=== PATIENT | female | born 1950 | race Caucasian/White ===

== ENCOUNTER 2018-08-26 19:26 | Emergency (ER) | payer OTHER, SELFPAY ==
[2018-08-26 19:33] VITALS: BP 136/91; PULSE 71; RESP 16; TEMP 36.7; O2SAT 95; BMI 33.8
--- NOTE | 2018-08-26 20:21 | ED.BACK ---
HPI - Back Pain/Injury General Chief Complaint: Back Pain/Injury Stated Complaint: lower back pain Time Seen by Provider: 08/26/18 20:21 Source: patient and family Mode of arrival: ambulatory Limitations: no limitations History of Present Illness HPI Narrative: Patient is a 68-year-old female here for evaluation of right sided back pain. Patient states that it started to hurt 3 days ago. States that has worsened since then. Is now wrapping around to the front. She has been taking Flexeril at home that she had left over when she had neck pain but this has not helped her all that much. Denies any urinary symptoms. Denies any bowel symptoms. She has had her gallbladder removed. No skin changes. Also has been taking ibuprofen. States that the pain comes and goes. States she has had periods where she was symptom free over the past couple days. The pain is reproducible to palpation. Related Data Previous Rx's Medication Instructions Recorded diazepam [Valium] 5 mg PO BID-TID PRN #10 tab 08/26/18 Allergies Allergy/AdvReac Type Severity Reaction Status Date / Time EPINEPHRINE Allergy Unknown PT STATES Uncoded 06/28/17 12:56 HEART RATE INCREASES Review of Systems Constitutional Denies fever(s) Cardiovascular Denies chest pain and Denies dyspnea Respiratory Denies dyspnea Gastrointestinal Gastrointestinal: Reports abdominal pain Genitourinary Denies dysuria, Denies pelvic pain and Reports flank pain (Right) Musculoskeletal Reports back pain, Denies myalgias and Denies arthralgias Integumentary/Breasts Denies rash Neurologic Denies behavioral changes Psychiatric Denies behavioral changes Hematologic/Lymphatic Denies easy bleeding and Denies easy bruising FOR[facility]LY [facility] Surgical History History of cholecystectomy (Acute) Social History Smoking Status: Never smoker Social History Smoking Status: Never smoker Exam Initial Vital Signs Initial Vital Signs: Vital Signs Temperature 98.1 F 08/26/18 19:33 Pulse Rate 71 08/26/18 19:33 Respiratory Rate 16 08/26/18 19:33 Blood Pressure 136/91 H 08/26/18 19:33 Pulse Oximetry 95 08/26/18 19:33 Const General: cooperative, well developed, well groomed and No acute distress Orientation: alert and awake HENMT Head: normal to inspection and normocephalic Resp Effort & Inspection: normal respiratory effort Auscultation: clear to auscultation bilaterally Cardio Rate: regular rate Rhythm: regular rhythm Back/Spine/Pelvis Back: CVA tenderness right Thoracic/Lumbar Spine: other (Reproducible right-sided paraspinal tenderness from lower ribs to crest) Skin Lesions: no lesions Rashes: no rashes Neuro General: alert and awake Cognition: normal cognition Speech: speech normal Gait: normal gait Extrem General: normal to inspection and capillary refill normal Psych Appearance: grossly normal and well kempt Course Orders Ordered: ED Orders 08/26/18 20:15 Urine Microscopic Stat 08/26/18 21:12 Complete Blood Count AUTO DIFF Stat 08/26/18 21:19 Comprehensive Metabolic Panel Stat Lipase Stat Discontinued Medications Diazepam (Valium) 5 mg PO NOW ONE Stop: 08/26/18 20:32 Last Admin: 08/26/18 20:52 Dose: 5 mg Ketorolac Tromethamine (Toradol) 15 mg IV NOW ONE Stop: 08/26/18 20:32 Last Admin: 08/26/18 20:52 Dose: 15 mg Vital Signs - 8 hr 08/26/18 19:33 08/26/18 21:09 08/26/18 21:30 Temperature 98.1 F Pulse Rate 71 65 61 Respiratory Rate 16 16 16 Blood Pressure 136/91 H Blood Pressure [Left Arm] 150/77 H 136/69 Pulse Oximetry 95 97 97 MDM - Back Pain/Injury Lab Data Attestation: I reviewed the patient's lab results. Result diagrams: 08/26/18 21:12 08/26/18 21:19 Lab Results 08/26/18 08/26/18 08/26/18 Range/Units 20:15 21:12 21:19 WBC 9.5 (4.5-11.0) X10^3/uL RBC 4.80 (4.0-5.2) X10^6/uL Hgb 14.5 (12.0-16.0) g/dL Hct 43.0 (36-46) % MCV 89.5 (80-100) fL MCH 30.2 (26-34) PG MCHC 33.8 (30-36) % RDW 12.9 (11.6-14.8) % Plt Count 336 (150-400) X10^3/uL Neut % (Auto) 57.6 (50-75) % Lymph % (Auto) 27.9 (25-40) % [place] % (Auto) 10.3 (3-14) % Eos % (Auto) 3.0 (2-4) % Baso % (Auto) 1.2 (0-2) % Neut # (Auto) 5500 (6314-6740) /uL Lymph # (Auto) 2600 (1653-3143) /uL [place] # (Auto) 1000 H (0-900) /uL Eos # (Auto) 300 (0-450) /uL Baso # (Auto) 100 (0-100) /uL Sodium 136 L (137-145) mmol/L Potassium 3.9 (3.4-5.1) mmol/L Chloride 102 (98-107) mmol/L Carbon Dioxide 26 (22-32) mmol/L BUN 19 H (7-17) mg/dL Creatinine 0.70 (0.52-1.04) mg/dL Estimated GFR > 60.0 (>60) mL/min BUN/Creatinine Ratio 27.1 H (6-22) Glucose 107 (80-110) mg/dL Calcium 9.5 (8.4-10.2) mg/dL Total Bilirubin 0.3 (0.2-1.3) mg/dL AST 20 (14-36) IU/L ALT 16 (9-52) IU/L Alkaline Phosphatase 85 (38-126) U/L Total Protein 7.3 (6.3-8.2) g/dL Albumin 4.0 (3.5-5.0) g/dL Globulin 3.3 (1.7-4.1) g/dL Albumin/Globulin Ratio 1.2 (1.0-2.8) Lipase 50 (23-300) U/L Urine RBC None seen (0-5/HPF) Urine WBC 1-5/hpf (0-5/HPF) Ur Squamous Epith Cells 5-10 /hpf H (0-5/HPF) Urine Bacteria Moderate (10-30) H (None) Ur Culture Indicated? Cult not indicated Urine Dip Bedside Urine Glucose Negative Bedside Urine Bilirubin - Negative Bedside Urine Ketone - Negative Urine Specific [place] 1.025 Bedside Urine Occult Blood - Negative Bedside Urine pH 5.5 Bedside Urine Protein - Negative Bedside Urine Urobilinogen - Negative Bedside Urine Nitrite - Negative Bedside Urine Leukocytes +/- 15 Esterase MDM Narrative Medical decision making narrative: Patient's urine shows no signs of blood. Has reproducible right-sided back pain so I feel that renal colic is unlikely. Patient's urinalysis is also negative for infection. Low suspicion for pyelonephritis. She has had her gallbladder removed. Low suspicion for biliary colic. Her her symptoms do seem to be colicky. The patient states that she is having a muscle spasm. She was given Toradol and Valium here in the emergency department which did improve her symptoms however did not resolve them. No trauma. Will hold on x-rays. Will send home with a prescription for Valium. She was instructed to continue to take the anti-inflammatories. Informed her not to take the Flexeril and the Valium together. We did discuss the importance of avoiding falling. Patient was given return precautions and follow-up instructions. She expressed understanding and agreement with plan. Discharge Plan Departure Patient Disposition: Home Clinical Impression: Muscle spasm of back Discharge Date/Time: 08/26/18 21:55 Interventions: ED Discharge Assessment Last Done: 08/26/18 21:57 Instructions: DI for Back Spasm Activity Restrictions/Additional Instructions: The Flexeril and the Valium can make you drowsy. Do not take these medications together. Be careful at home to avoid falling. You can also use heat and ice and massage. You can also do some light stretching. Return to the emergency department for any new or worsening symptoms. Contact your primary care doctor for a follow-up. Prescriptions: New diazepam [Valium] 5 mg tablet 5 mg PO BID-TID PRN (Reason: muscle spasm) Qty: 10 RF: 0 Referrals: Jose Eastman MD [Primary Care Provider] -
[2018-08-26 20:32] LABS: RBC Urine None Seen (0-5/HPF)
[2018-08-26 20:37] LABS: WBC Urine 1-5/HPF (0-5/HPF)
[2018-08-26 20:38] LABS: Bacteria Urine Moderate (10-30); Culture Indicated Urine Cult Not Indicated; Squamous Epithelial Cell Urine 5-10 /HPF (0-5/HPF)
[2018-08-26] MEDS: KETOROLAC 60 MG/2 ML VIAL 15 MG IV (20:52)
[2018-08-26] MEDS: diazePAM 5 MG TABLET PO (20:52)
[2018-08-26 21:09] VITALS: BP 150/77; PULSE 65; RESP 16; O2SAT 97
[2018-08-26 21:19] LABS: Add Manual Diff / Slide Review NO; Basophils Absolute Auto 100 /uL (0-100); Basophils Percent Auto 1.2 % (0-2); Eosinophils Absolute Auto 300 /uL (0-450); Hemoglobin 14.5 g/dL (12.0-16.0); Lymphocytes Absolute Auto 2600 /uL (1100-4500); Lymphocytes Percent Auto 27.9 % (25-40); Mean Corpuscular HGB Conc 33.8 % (30-36); Mean Corpuscular Hemoglobin 30.2 PG (26-34); Mean Corpuscular Volume 89.5 fL (80-100); Monocytes Absolute Auto 1000 /uL (0-900); Monocytes Percent Auto 10.3 % (3-14); Neutrophils Absolute Auto 5500 /uL (1500-7000); Neutrophils Percent Auto 57.6 % (50-75); Platelet Count 336 X10^3/uL (150-400); Red Cell Distribution Width 12.9 % (11.6-14.8); White Blood Cell Count 9.5 X10^3/uL (4.5-11.0)
[2018-08-26 21:30] VITALS: BP 136/69; PULSE 61; RESP 16; O2SAT 97
[2018-08-26 21:41] LABS: Alanine Aminotransferase 16 IU/L (9-52); Albumin Globulin Ratio 1.2 (1.0-2.8); Alkaline Phosphatase 85 U/L (38-126); Aspartate Aminotransferase 20 IU/L (14-36); BUN Creatinine Ratio 27.1 (6-22); Bilirubin Total 0.3 mg/dL (0.2-1.3); Blood Urea Nitrogen 19 mg/dL (7-17); Calcium 9.5 mg/dL (8.4-10.2); Carbon Dioxide 26 mmol/L (22-32); Chloride 102 mmol/L (98-107); Estimated Glomerular Filt Rate > 60.0 mL/min (>60); Globulin 3.3 g/dL (1.7-4.1); Glucose 107 mg/dL (80-110); HEMOLYSIS < 15 (0-50); Lipase 50 U/L (23-300); Potassium 3.9 mmol/L (3.4-5.1); Sodium 136 mmol/L (137-145); Total Protein 7.3 g/dL (6.3-8.2)
== END 2018-08-26 21:55 | disposition home or self-care (01) ==
PROVIDERS: Emergency Provider Emergency Medicine; Family Provider Family Medicine; PCP Family Medicine
DX: M62.830 Muscle spasm of back (principal)
CPT/HCPCS: 36415; 36591; 80053; 81003; 81015; 83690; 85025; 96374; 99282; 99284; J1885

== ENCOUNTER 2019-07-23 17:27 | Observation (INO) | payer OTHER, SELFPAY ==
[2019-07-23 17:30] VITALS: BP 139/67; PULSE 66; RESP 20; TEMP 36.7; O2SAT 96; BMI 32.9
--- NOTE | 2019-07-23 18:00 | DI.RAD.S_ITS ---
PROCEDURE: XR CHEST 1V INDICATIONS: Chest pain TECHNIQUE: One view of the chest was acquired. COMPARISON: [facility], , CHEST 1 VIEW, 04/22/2014, 21:30. FINDINGS: Surgical changes and devices: None. Lungs and pleura: Lungs are clear. No pleural effusions or pneumothorax. Mediastinum: Mediastinal contours appear normal. Heart size is normal. Bones and chest wall: No suspicious bony lesions. Overlying soft tissues appear unremarkable. IMPRESSION: No acute cardiopulmonary disease. Dictated by: Blake Benitez M.D. on 07/23/2019 at 18:24 Approved by: Blake Benitez M.D. on 07/23/2019 at 18:25
--- NOTE | 2019-07-23 18:01 | ED_ITS ---
HPI - Chest Pain General Chief Complaint: Chest Pain Stated Complaint: L side chest pain/SOB Time Seen by Provider: 07/23/19 17:29 Source: patient Mode of arrival: EMS Limitations: no limitations History of Present Illness HPI narrative: Patient brought in by ambulance for left-sided chest pain 1 hour prior to arrival. She originally was in a car out for a ride. Had left-sided chest pain nonradiating. Had nausea dyspnea. Feels slightly tingly in both arms and face. No back pain abdominal pain no syncope. Patient got home and had EMS called. She did take a full aspirin prior to arrival. Currently no [address] pain. Pain was 10/10. Sharp./stress test 20 years ago. Patient does not smoke. Related Data Previous Rx's Medication Instructions Recorded diazepam [Valium] 5 mg PO BID-TID PRN #10 tab 08/26/18 Allergies Allergy/AdvReac Type Severity Reaction Status Date / Time doxycycline [From Vibramycin] Allergy Verified 07/23/19 17:34 EPINEPHRINE AdvReac Unknown PT STATES Uncoded 07/23/19 17:34 HEART RATE INCREASES Review of Systems Review of Systems Narrative: GENERAL: Denies chills, fatigue, malaise, fever, sweats. HEENT: Denies sinus pain, ear pain, sore throat, difficulty swallowing, dizziness. RESPIRATORY: Denies cough, wheezing, hemoptysis, sputum. Has dyspnea CARDIOVASCULAR: Denies palpitations/edema/syncope, has chest pain GASTROINTESTINAL: Denies vomiting, abdominal pain, diarrhea, constipation, melena. Has nausea : Denies dysuria, frequency, incontinence, hematuria, urinary retention. MUSCULOSKELETAL: denies weakness, joint pain, or bony pain SKIN: Denies rash, skin lesions, or other NEUROLOGIC: Denies weakness, headache, numbness, change in speech, confusion, s eizures, incoordination. PSYCHIATRIC: No concerning psychosocial issues. ROS Unobtainable: All systems reviewed & are unremarkable except as noted in HPI and below Patient History Surgical History History of cholecystectomy (Acute) Social History Smoking Status: Never smoker Smoking Status: Never smoker alcohol intake frequency: holidays/special occasions only Substance Use Type: does not use Exam Narrative Exam Narrative: GENERAL: patient appears stated age. Well-nourished, well- developed patient, in no distress, not toxic HEAD: Atraumatic. Normocephalic. EYES: Pupils equal round and reactive. . ENT: Nose without bleeding, purulent drainage. NECK: Trachea midline. Non tender CARDIOVASCULAR: Regular rate and rhythm without murmurs, gallops, or rubs. RESPIRATORY: Clear to auscultation. Breath sounds equal bilaterally. No wheezes, rales, or rhonchi. GASTROINTESTINAL: Abdomen soft, non-tender, nondistended. EXTREMITIES: No edema or joint tenderness. BACK: Nontender without deformity or crepitance. No flank tenderness. NEURO: AOx3. SKIN: No rash or erythema of visible areas Initial Vital Signs Initial Vital Signs: Vital Signs Temperature 98.0 F 07/23/19 17:30 Pulse Rate 66 07/23/19 17:30 Respiratory Rate 20 07/23/19 17:30 Blood Pressure 139/67 07/23/19 17:30 Pulse Oximetry 96 07/23/19 17:30 Course Course Course Narrative: time 1811 s/o dr wang...results pending...admit obv of stress test Orders Ordered: ED Orders 07/23/19 17:43 Complete Blood Count AUTO DIFF Stat Comprehensive Metabolic Panel Stat Lipase Stat Partial Thromboplastin Time Stat Prothrombin Time INR Stat Troponin & CK Cardiac Panel Stat 07/23/19 18:00 XR chest 1V Stat EKG-12 Lead Stat Vital Signs Vital signs: Vital Signs - 8 hr 07/23/19 17:30 Temperature 98.0 F Pulse Rate 66 Respiratory Rate 20 Blood Pressure 139/67 Pulse Oximetry 96 MDM - Chest Pain Differential Diagnosis Differential diagnosis: Likely unstable angina pectoris and atypical chest pain Lab Data Result diagrams: 07/23/19 17:43 07/23/19 17:43 ECG Data Attestation: I personally reviewed and interpreted this ECG as follows: Interpretation: Time 5:37 p.m.. Sinus bradycardia, rate 58 Discharge Plan Departure Prescriptions: No Action diazepam [Valium] 5 mg tablet 5 mg PO BID-TID PRN (Reason: muscle spasm) Qty: 10 RF: 0
[2019-07-23 18:06] LABS: Add Manual Diff / Slide Review NO; Basophils Absolute Auto 100 /uL (0-100); Basophils Percent Auto 0.8 % (0-2); Eosinophils Absolute Auto 200 /uL (0-450); Eosinophils Percent Auto 2.5 % (2-4); Hematocrit 42.9 % (36-46); Hemoglobin 14.4 g/dL (12.0-16.0); Lymphocytes Absolute Auto 2200 /uL (1100-4500); Lymphocytes Percent Auto 31.7 % (25-40); Mean Corpuscular HGB Conc 33.6 % (30-36); Mean Corpuscular Hemoglobin 30.6 PG (26-34); Monocytes Absolute Auto 600 /uL (0-900); Monocytes Percent Auto 8.9 % (3-14); Neutrophils Absolute Auto 3900 /uL (1500-7000); Neutrophils Percent Auto 56.1 % (50-75); Platelet Count 308 X10^3/uL (150-400); Red Blood Cell Count 4.71 X10^6/uL (4.0-5.2); Red Cell Distribution Width 12.8 % (11.6-14.8); White Blood Cell Count 6.9 X10^3/uL (4.5-11.0)
[2019-07-23 18:07] LABS: Prothrombin Time 11.3 SECONDS (10.1-12.7)
[2019-07-23 18:10] LABS: PTT Partial Thromboplastin Tim 36 SECONDS (26.4-36.2)
[2019-07-23 18:13] LABS: Alanine Aminotransferase 15 IU/L (<35); Albumin 4.2 g/dL (3.5-5.0); Albumin Globulin Ratio 1.2 (1.0-2.8); Alkaline Phosphatase 66 U/L (38-126); Aspartate Aminotransferase 24 IU/L (14-36); BUN Creatinine Ratio 31.4 (6-22); Bilirubin Total 0.4 mg/dL (0.2-1.3); Blood Urea Nitrogen 22 mg/dL (7-17); Calcium 9.6 mg/dL (8.4-10.2); Carbon Dioxide 27 mmol/L (22-32); Chloride 100 mmol/L (98-107); Creatine Kinase 46 U/L (30-135); Estimated Glomerular Filt Rate > 60.0 mL/min (>60); Globulin 3.5 g/dL (1.7-4.1); Glucose 107 mg/dL (80-110); HEMOLYSIS 24 (0-50); Lipase 39 U/L (23-300); Potassium 3.9 mmol/L (3.4-5.1); Sodium 135 mmol/L (137-145); Total Protein 7.7 g/dL (6.3-8.2)
[2019-07-23 18:25] LABS: Troponin I < 0.012 ng/mL (0.01-0.034)
[2019-07-23 19:30] VITALS: BP 144/74; PULSE 57; RESP 30; TEMP 36.6; O2SAT 97
[2019-07-23 19:45] VITALS: BMI 32.9
--- NOTE | 2019-07-23 22:48 | PC.NURSE ---
Admit/Evening SHift Note- Patient arrived to room via stretcher at 1930. Patient alert and oriented and able to arturo needs known to staff. Admission questions done, meds reviewed, and physical assessment completed. Oriented patient to bed and bed controls, room, bathroom, lights, phone, menu, and call morley/tv remote. Safety measures in place. Patient agrees to call for assistance. Call morley and phone within reach. Will continue to monitor.
--- NOTE | 2019-07-24 | DI.NM.S_ITS ---
PROCEDURE: KS MAGDALENO PERF SPECT R&S Treadmill exercise Rest and pharmacological stress myocardial perfusion SPECT with gated imaging and ejection fraction RADIOPHARMACEUTICAL: 12.1 mCi Tc-99m tetrafosmin IV at rest and 26.1 mCi Tc-99m tetrafosmin IV at peak effect of pharmacological stress. [id number] was performed. INDICATIONS: chest pain TECHNIQUE: Radiopharmaceutical was injected at peak stress test, and also at rest. SPECT images were obtained. SPECT myocardial perfusion images were displayed in short axis, horizontal long axis, and vertical long axis views. Gated images were reviewed using SynapSense software. COMPARISON: None. CARDIAC STRESS: The modified isamar protocol was used and the patient achieved 81% of max predicted heart rate. 7.0 METs. Resting BP 126/78mmHg. Max BP 160/90mmHg. Symptoms: The patient denied anginal chest pain. Left arm parasthesia with hyperventilation. Aminophylline: none EKG: No diagnostic changes of ischemia; occasional PVCs. FINDINGS: Raw data: There is good myocardial uptake of radiotracer. No significant motion artifacts. Qnxo-zw-cznlf ratio is 0.37 (normal is less than 0.38 for tetrafosmin tracer). Left ventricle function: Gated images demonstrate normal left ventricular wall thickening. No segmental wall motion abnormalities. No transient ischemic dilation; TID is 0.62 (normal less than 1.3). Left ventricle resting end diastolic volume is 78 mL. Left ventricle stress ejection fraction is 86%; normal range is above 45%. Myocardial perfusion: There is normal distribution of activity in the right and left ventricular myocardium. No fixed or reversible perfusion defects. IMPRESSION: Low risk, normal slightly submaximal treadmill nuclear stress test 1) No perfusion evidence of ischemia or infarction. 2) Normal left ventricular size, wall motion, and systolic function (EF post stresws 86%). 3) No ECG evidence of ischemia. 4) No angina during the study. Left arm parasthesia with hyperventilation. 5) Reduced exercise capacity (7.0 METs). Slightly submaximal stress test as 81% of max predicted heart rate achieved (submaximal study reduces sensitivity to detect obstructive CAD). Appropriate BP response to exercise. 6) No prior nuclear stress test available for comparison. Dictated by: Dinesh Henning MD on 07/24/2019 at 17:09 Approved by: Dinesh Henning MD on 07/24/2019 at 17:17
--- NOTE | 2019-07-24 | DI.ECHO.S_ITS ---
[facility]---------+ [facility] +---------+ : : [address] [address] : : : : [id number] : : : : Phone: [phone] Echocardiogram Report + + :Name: EDY HARDING Study Date: 07/24/2019 Height: 62 in : :Hospital Weight: 180 lb : : Gender: Female BSA: 1.8 m2 : :: 1950 Age: 68 yrs BP: 144/74 mmHg: :Reason For Study: CHEST PAIN : :Ordering Physician: Fany : :Hospitalist Performed By: Suzanne Trujillo : :Referring: BRITNEY GASTON : + + Interpretation Summary Left ventricular systolic function is normal without any focal wall motion abnormalities with the ejection fraction estimated at 65-70%. The right ventricle appears normal. Pulmonary artery pressures cannot be estimated but CVP is estimated at 3 mmHg. There is mild left atrial enlargement. There are no significant valvular abnormalities. The aortic arch is at the upper limits of normal in size. Procedure: A two-dimensional transthoracic echocardiogram with color flow and Doppler was performed. The study quality was technically difficult. There is no prior echocardiogram noted for this patient. The patient was in normal sinus rhythm during the exam. The heart rate ranged between 63-70 bpm during the study. Left Ventricle: The left ventricle is normal in size, wall thickness, and systolic function without any focal wall motion abnormalities. The ejection fraction is estimated to be 65-70%. Diastolic function could not be accurately assessed due to contradictory data. Right Ventricle: The right ventricle is normal in size and function. Atria: The left atrium is mildly dilated. The right atrium is normal in size. There is no Doppler evidence for an interatrial shunt. Mitral Valve: The mitral valve is normal in structure and function. There is trace mitral regurgitation. Aortic Valve: The aortic valve is trileaflet. The aortic valve opens well. There is no aortic valve stenosis. No aortic regurgitation is present. Tricuspid Valve: The tricuspid valve is normal in structure and function. No tricuspid regurgitation. Pulmonary artery pressures cannot be estimated because of the lack of a measurable TR jet velocity but the IVC suggests a CVP of around 3 mmHg. Pulmonic Valve: The pulmonic valve is normal in structure and function. There is no pulmonic valvular regurgitation. There is no significant valvular heart disease. Great Vessels: The aortic root is normal size. The dimensions of the ascending aorta are normal. The aortic arch is at the upper limits of normal in size. The IVC is of normal diameter and collapses greater than 50% with a sniff. This suggests a low right atrial pressure of 3 mm Hg. Pericardium/ Pleura There is no pericardial effusion. MMode/2D Measurements & Calculations LVIDd: 4.3 cm LVOT diam: 1.9 cm LVIDs: 2.7 cm Ao root diam: 2.5 cm FS: 37.6 % asc Aorta Diam: 3.2 cm EPSS: 0.57 cm Ao Arch Diam (Prox Trans): 3.1 cm IVSd: 0.84 cm LVPWd: 0.90 cm LV adams. diameter/BSA (cm/m^2): 2.3 LV sys. diameter/BSA (cm/m^2): 1.5 LA A2 area: 21.1 cm2 RA long axis: 5.1 cm LA A4 area: 20.5 cm2 RA area: 15.7 cm2 LA length (vol): 5.4 cm RA vol: 41.7 ml LA vol: 68.5 ml RA : 22.8 ml/m2 LA vol index: 37.5 ml/m2 IVC diam: 0.82 cm RVD1 (basal): 3.5 cm TAPSE: 2.4 cm Doppler Measurements & Calculations Ao V2 max: 114.2 cm/sec LVOT Max Celio: 111.4 cm/sec Ao V2 mean: 79.1 cm/sec LV V1 max P.0 mmHg Ao max P.2 mmHg LV V1 VTI: 25.4 cm Ao mean P.8 mmHg HIMANSHU(I,D): 2.8 cm2 Ao V2 VTI: 26.8 cm HIMANSHU(V,D): 2.9 cm2 sev ratio: 0.95 HIMANSHU indexed to BSA (cm^2/m^2): 1.5 MV E max celio: 70.5 cm/sec PA V2 max: 76.2 cm/sec MV A max celio: 77.3 cm/sec PA V2 mean: 56.0 cm/sec MV E/A: 0.91 PA mean P.4 mmHg Med Peak E' Celio: 6.8 cm/sec E/E' med: 10.4 Lat Peak E' Celio: 6.5 cm/sec E/E' lat: 10.8 E/e' average: 10.6 MV dec time: 0.25 sec SV(LVOT): 75.3 ml Reading Physician:АННА
[2019-07-24 00:11] VITALS: BP 122/60; PULSE 63; RESP 18; TEMP 36.8; O2SAT 95
--- NOTE | 2019-07-24 00:15 | PC.NURSE ---
Patient is alert and oriented. Breath sounds CTA with RA sat of 95%. HRR; is on telemetry with last recorded reading of SR. Denies chest pain. Denies nausea. BT hypoactive but is passing flatus. Reports chronic sx of IBS. Denies dysuria, frequency or urgency; urine is clear yellow. Able to turn self in bed. Reports earlier unsteadiness when up so requested she call for assistance when needing to get out of bed for safety; verbalizes understanding. Fall risk score is low but bed alarm activated for night time safety.
--- NOTE | 2019-07-24 01:54 | PM.HP.1 ---
History of Present Illness History of Present Illness Date Patient Seen: 07/23/19 Time Patient Seen: 20:00 Chief complaint: L side chest pain/SOB Narrative: Nimo Cody is a 68-year-old female with a history of hypertension an currently taking hormone replacement was driving today when she developed shooting pain that radiated to her tongue and left hand. She did not think anything of it went home and noticed that her face was quite red. She felt like her forehead was cold and that her left hand was also getting cold. She felt weak in her legs. And had a mild case of nausea. She contacted EMS and was found to have very high blood pressure of 200/113 and was given at full strength aspirin to chew. She states she took her blood pressure meds today. She denies headache, vision changes, shortness of breath, abdominal pain, dysuria, diarrhea or constipation. Patient History Medical History Hypertension (Acute) Surgical History History of cholecystectomy (Acute) History of right hip replacement (Acute) Hx of hysterectomy (Acute) Hx of rhinoplasty (Acute) Family & Social History Family History Mother Hypertension COPD (chronic obstructive pulmonary disease) Father Heart disease Social History: household members family Prior Living Arrangements House Safety & Behavioral: Feels Safe in Current Yes Environment Been Physically Hurt or No Threatened By a Person Suicidal Ideation Description None Suicide Plan Description No Plan Tobacco & Substance use: Smoking Status Former smoker alcohol intake frequency holiday/special occasion Substance Use Type does not use Meds Home Medications and Allergies Home Medications Medication Instructions Recorded Confirmed Type amlodipine 2.5 mg PO DAILY 07/24/19 07/24/19 History carvedilol 12.5 mg PO BID 07/24/19 07/24/19 History estradiol 1 mg PO BEDTIME 07/24/19 07/24/19 History hydrochlorothiazide 12.5 mg PO DAILY 07/24/19 07/24/19 History levothyroxine 25 mcg PO DAILY 07/24/19 07/24/19 History melatonin 3 mg PO BEDTIME 07/24/19 07/24/19 History nortriptyline 25 mg PO BEDTIME 07/24/19 07/24/19 History valacyclovir 500 mg PO PRN PRN 07/24/19 07/24/19 History Allergies Allergy/AdvReac Type Severity Reaction Status Date / Time doxycycline [From Vibramycin] Allergy Verified 07/23/19 19:08 EPINEPHRINE AdvReac Unknown PT STATES Uncoded 07/23/19 17:34 HEART RATE INCREASES Review of Systems Review of Systems ROS: Yes All systems reviewed with the patient and are negative except as otherwise documented Exam Vital Signs (past 8 hours): - 07/23/19 19:30 07/24/19 00:11 Temperature 97.8 F 98.2 F Pulse Rate 57 L 63 Respiratory Rate 30 H 18 Blood Pressure 144/74 H 122/60 Pulse Oximetry 97 95 Oxygen Delivery Method Room Air Oxygen Flow Rate 0 Narrative Exam Narrative: Gen: Alert, oriented, well-nourished 68 y.o. female, vss HEENT: normocephalic, atraumatic, conjunctiva clear, sclera non-icteric, oral mucosa pink and moist Neck: supple, full ROM, no JVD Resp: Lungs CTA, non-labored breathing CV: RRR, no murmur or rubs Abd: soft, non-tender, normoactive BTs Skin: no lesions or rashes, dry and intact Neuro: Alert and oriented X 4 w/no focal deficits Extremities: moves all 4 extremities, is ambulatory, negative Kristine?s sign Psyche: normal mood and affect. Objective Labs Result Diagrams: 07/23/19 17:43 07/23/19 17:43 Labs: Laboratory Results - last 24 hr 07/23/19 07/23/19 07/23/19 17:43 17:43 17:43 WBC 6.9 RBC 4.71 Hgb 14.4 Hct 42.9 MCV 91.0 MCH 30.6 MCHC 33.6 RDW 12.8 Plt Count 308 Neut % (Auto) 56.1 Lymph % (Auto) 31.7 [place] % (Auto) 8.9 Eos % (Auto) 2.5 Baso % (Auto) 0.8 Neut # (Auto) 3900 Lymph # (Auto) 2200 [place] # (Auto) 600 Eos # (Auto) 200 Baso # (Auto) 100 PT 11.3 INR 1.0 APTT 36 Sodium 135 L Potassium 3.9 Chloride 100 Carbon Dioxide 27 BUN 22 H Creatinine 0.70 Estimated GFR > 60.0 BUN/Creatinine Ratio 31.4 H Glucose 107 Calcium 9.6 Total Bilirubin 0.4 AST 24 ALT 15 Alkaline Phosphatase 66 Total Creatine Kinase 46 CK-MB (CK-2) TNP CK-MB (CK-2) Rel Index TNP Troponin I < 0.012 Total Protein 7.7 Albumin 4.2 Globulin 3.5 Albumin/Globulin Ratio 1.2 Lipase 39 Assessment & Plan Assessment & Plan narrative: Nimo Cody will be placed into observation and undergo a nuclear stress test in the morning. Chest pain -1st troponin was negative she will have 2 more troponins q.6 -carvedilol is being held tonight and will be resumed after she undergoes her stress test. -nuclear stress test in the morning -Echocardiogram in the am Essential hypertension -patient is resumed on amlodipine 2.5 mg -hydrochlorothiazide is being held Hormone replacement therapy -patient takes estrogen 1 mg, this is held due to increased cardiac rest Consults: none Patient is placed into an observation bed. Stay is is not likely to exceed 2 midnights. FEN: saline lock, 2 gram sodium diet,BMP in the am. VTE prophylaxis: Heparin 5000 units subcu twice daily Dispo: Probable discharge to home with outpatient follow-up Code Status: Full code as discussed with patient COVID-19 COVID-19 status: Not tested Quality VTE Deep Vein Thrombosis/Pulmonary Embolism Present on Admission: No
[2019-07-24 02:18] LABS: Troponin I < 0.012 ng/mL (0.01-0.034)
[2019-07-24] MEDS: HEPARIN 5,000 UNIT/ML VIAL 5000 UNIT SUBCUT ×2 (02:39→09:17)
[2019-07-24] MEDS: AMLODIPINE 2.5 MG TABLET PO (02:39)
[2019-07-24 04:48] VITALS: BP 132/69; PULSE 64; RESP 18; TEMP 36.6; O2SAT 95
[2019-07-24 05:56] LABS: Alanine Aminotransferase 13 IU/L (<35); Albumin 3.8 g/dL (3.5-5.0); Albumin Globulin Ratio 1.1 (1.0-2.8); Alkaline Phosphatase 66 U/L (38-126); Aspartate Aminotransferase 20 IU/L (14-36); BUN Creatinine Ratio 31.7 (6-22); Bilirubin Total 0.4 mg/dL (0.2-1.3); Blood Urea Nitrogen 20 mg/dL (7-17); Calcium 9.4 mg/dL (8.4-10.2); Carbon Dioxide 27 mmol/L (22-32); Chloride 100 mmol/L (98-107); Estimated Glomerular Filt Rate > 60.0 mL/min (>60); Globulin 3.4 g/dL (1.7-4.1); Glucose 104 mg/dL (80-110); HEMOLYSIS < 15 (0-50); Potassium 3.4 mmol/L (3.4-5.1); Sodium 134 mmol/L (137-145); Total Protein 7.2 g/dL (6.3-8.2)
[2019-07-24 08:00] VITALS: BP 135/74; PULSE 61; RESP 18; TEMP 36.1; O2SAT 97
[2019-07-24 08:20] LABS: Troponin I < 0.012 ng/mL (0.01-0.034)
[2019-07-24] MEDS: SODIUM CHLORIDE 0.9% FLUSH 10 ML IV (09:17)
[2019-07-24] MEDS: ASPIRIN EC 81 MG TABLET PO (09:17)
[2019-07-24 10:17] LABS: Troponin I < 0.012 ng/mL (0.01-0.034)
[2019-07-24] MEDS: LEVOTHYROXINE 25 MCG TABLET PO (11:43)
[2019-07-24 12:00] VITALS: BP 143/76; PULSE 63; RESP 18; TEMP 36.7; O2SAT 95
--- NOTE | 2019-07-24 13:55 | CM.DANOTE ---
Patient is a 68 year old female who was admitted on 07/23/19 for Chest Pain/SOB. Pt has [facility] for insurance and her PCP is Dr. Jose Eastman. EMR was reviewed. Per MD, pt to have Stress test and Echo today and home pending test results. Per RN, pt to have second half of stress test today around 1410 and Echo still pending. SW met bedside with pt and explained role and pt confirms that she lives at home in [place] and is primary CG to her elderly 94 yo mother. Pt's brother lives in [place] and is staying with elderly mother while pt is admitted to the hospital. Pt's Dtr/DPOA Mary Long also lives in [place] and supportive and available to provide transport home at d/c. Pt is independent with ADL's at baseline and denies any hx of HH or SNF and preference is to d/c home later today pending test results. Pt does not anticipate any d/c needs at this time. Plan: SW to follow for likely pt d/c home via Dtr POV later today pending Echo and Stress test results. SW to follow for any further identified needs. FRANKY Hong Discharge Planning/Care Management CM Discharge Assessment Start: 07/24/19 13:53 Freq: Status: Active Protocol: Document 07/24/19 13:53 BF (Rec: 07/24/19 13:54 BF [id number]) Discharge Planning Assessment Assigned [place] Attorney FRANKY Aquino DPOA/Assigned Designee Name Aureliano Long Contact Information [phone] Advance Directives? No Advance Directives on File No History Provided By Patient,Medical Record Has Patient been admitted in last 30 No days? Prior Living Arrangements House Household Members family Type of transporation used prior to Drives own vehicle admit Comment Lives at home in [place] with local supportive family and is primary CG to her elderly mother who lives with pt Independent with ADL's Yes Is patient alert and oriented? Yes Caregiver for Another Yes: elderly mother Comment Likely home pending Echo and Stress test Barriers to Discharge No Discharge Plan Home Transportation Arrangement Dtr can provide transport home at d/c Referrals Initiated None needed Whiteboard Updated in Patient Room with Yes name and ext. # of [place] Attorney Review Status In Process Please Provide Date Initial DC 07/24/19 Assessment Was Performed Next Review Type Continued Stay Review
--- NOTE | 2019-07-24 14:16 | PC.NURSE ---
Patient resting in bed, denies pain or complaint. Picked up at this time for stress test via wheelchair.
--- NOTE | 2019-07-24 14:58 | PM.TREADMILL ---
Cardiac Stress Test Report Referral & Results Date Patient Seen: 07/24/19 Time Patient Seen: 14:30 Requesting provider: Justine Roca Indication: Chest pain Rest ECG: Normal sinus rhythm Procedure Note: Today following both written and verbal informed consent the patient was exercised according to a modified Sergio protocol (held at stage II) patient went for a total of 7 minutes 14 seconds achieving a maximum heart rate of 123 maximum systolic blood pressure of 160. This is approximately 7.0 METs. Exercise was terminated at this point because of fatigue. Patient was also given Cardiolite through a previously started Hep-Lock IV by the senior nuclear medicine technologist approximately 1 minute prior to the cessation of exercise. Normal hemodynamic response to exercise. Patient had carvedilol on board. Functional activity impairment cannot be determined on a modified Sergio protocol. No signs or symptoms of angina with the exception of a left arm paresthesia most likely to be due to hyperventilation. Occasional PVCs seen on EKG during peak exercise. No ST deviations seen on tracing. Impression: Successful Cardiolite treadmill. Will await perfusion imaging. Please note: Actual ECG tracings can be found in the PACS system.
[2019-07-24 16:02] VITALS: BP 136/71; PULSE 68; RESP 18; TEMP 36.2; O2SAT 94
--- NOTE | 2019-07-24 18:13 | PC.NURSE ---
Assumed care of pt at 1500. Pt off unit for Stress test. Returned to room at approx 1545. Denies chest pain, pressure or sob. Echo completed. Discharge to home from MD. Pt verbalized understanding of d/c instructions. Pt states she will call PCP in AM to schedule f/up appt. IV removed, Tele removed, pt dressed and trans to w/c. Escorted out by FUEL SYSTEM MAINTENANCE SUPERVISOR to private vehicle. Pt left in stable condition with all personal belongings.
--- NOTE | 2019-09-03 14:29 | PM.DS.1 ---
History of Present Illness History of Present Illness Date Patient Seen: 07/24/19 Chief complaint: L side chest pain/SOB Narrative: Nimo Cody is a 68-year-old female with a history of hypertension an currently taking hormone replacement was driving today when she developed shooting pain that radiated to her tongue and left hand. She did not think anything of it went home and noticed that her face was quite red. She felt like her forehead was cold and that her left hand was also getting cold. She felt weak in her legs. And had a mild case of nausea. She contacted EMS and was found to have very high blood pressure of 200/113 and was given at full strength aspirin to chew. She states she took her blood pressure meds today. She denies headache, vision changes, shortness of breath, abdominal pain, dysuria, diarrhea or constipation. Discharge Providers Provider Date of admission: 07/23/19 18:30 Discharge Date: 07/24/19 Primary care physician: Tony Eastman MD Discharge provider: Christy Fisher MD Summary Hospital Course Discharge Diagnosis: 1. Chest pain etiology unclear 2. Hypertension 3. Hypothyroid Hospital Course: Patient was admitted to the hospital for abrupt onset of chest pain. Cardiac enzymes were negative. EKG was unremarkable. The patient underwent a cardiac stress test which was negative for acute ischemia. She was discharged home with plans to follow-up with her primary care physician. Status at Discharge Cognitive/behavioral status at discharge: oriented Functional status at discharge: independent ambulation Overall status at discharge: patient is back to baseline Time Spent with Patient Time spent: Less than 30 minutes Time spent discussing smoking cessation with patient: 3 to 10 minutes Exam Vital Signs (past 8 hours): Oxygen Delivery Method Room Air Oxygen Flow Rate 0 Narrative Exam Narrative: Pleasant female in no acute distress Lungs: Clear to auscultation Cardiac exam: Regular rate and rhythm normal S1-S2 Abdomen: Soft nontender nondistended Extremities: No edema Objective Labs Result Diagrams: 07/23/19 17:43 07/24/19 05:32 Discharge Plan Discharge Plan Patient Disposition: Home Discharge orders & Medications Prescriptions: Continued carvedilol 12.5 mg Tablet 12.5 mg PO BID RF: 0 amlodipine 2.5 mg Tablet 2.5 mg PO DAILY RF: 0 melatonin 3 mg Tablet 3 mg PO BEDTIME RF: 0 valacyclovir 500 mg tablet 500 mg PO PRN PRN (Reason: fever blister) RF: 0 levothyroxine 25 mcg Tablet 25 mcg PO DAILY RF: 0 nortriptyline 25 mg Capsule 25 mg PO BEDTIME RF: 0 estradiol 1 mg Tablet 1 mg PO BEDTIME RF: 0 hydrochlorothiazide 12.5 mg Tablet 12.5 mg PO DAILY RF: 0 Follow up/Referrals: Jose Eastman MD [Primary Care Provider] - Diet/Activity/Treatments Diet: Low-sodium and Low-cholesterol Skin/Wound/Dressing Care Report to your healthcare provider any signs of infection, such as:: increased pain Visit Report/Discharge Packet Instructions: DI for Chest Pain Visit Report Forms: Patient Portal/API, Stroke Signs & Symptoms Discharge Data Primary Care Provider: Jose Eastman Attending Provider: Christy Fisher Admit Date/Time: 07/23/19 18:30 Discharges patient from system. Discharge Date/Time: 07/24/19 18:15 Quality VTE Deep Vein Thrombosis/Pulmonary Embolism Present on Admission: No
== END 2019-07-24 18:15 | disposition home or self-care (01) ==
LOC: ED 18:21 → AC 18:30
PROVIDERS: Emergency Medicine; Nurse Practitioner Family; Admitting Provider Internal Medicine; Emergency Provider Emergency Medicine; Family Provider Family Medicine; PCP Family Medicine; Visit Provider Internal Medicine
DX: R07.9 Chest pain, unspecified (principal); I10 Essential (primary) hypertension; R11.0 Nausea
CPT/HCPCS: 36415; 71045; 78452; 80053; 82550; 83690; 83735; 84484; 85025; 85610; 85730; 93005; 93017; 93306; 96372; 99284; G0378; A9502; J1644; J2785

== ENCOUNTER → 2019-07-26 11:02 | Outpatient (CLI) | payer OTHER, SELFPAY ==
[2019-07-23 19:45] VITALS: BMI 32.9
--- NOTE | 2019-07-26 12:00 | DI.CT.S_ITS ---
PROCEDURE: CT ANGIO CHEST PE PROTOCOL INDICATIONS: CHEST PAIN TECHNIQUE: After the administration of intravenous contrast, 2 mm thick sections acquired from the pulmonary apices to the posterior costophrenic angles. 3-dimensional maximum intensity projection (MIP) coronal and sagittal reformats were then acquired through the thorax. For radiation dose reduction, the following was used: automated exposure control, adjustment of mA and/or kV according to patient size. COMPARISON: None. FINDINGS: Image quality: Excellent. Pulmonary arteries: Pulmonary arteries are normal in size, and demonstrate no intraluminal filling defects to suggest central pulmonary embolism. Lungs and pleura: 3 mm pulmonary nodule, right upper lobe, image 124/5. 3 mm pulmonary nodule, right lower lobe, image 124/5. 3 mm pulmonary nodule, right lower lobe, image 130/5. 3 mm pulmonary nodule, right lower lobe, image 199/5. 2 mm pulmonary nodule, left lingula, image 154/5. 3 mm pulmonary nodule, left lower lobe, image 126/5. 3 mm pulmonary nodule, left lower lobe, image 134/5. Lungs are clear. No pleural effusions or pneumothorax. Central and peripheral airways are patent. Mediastinum: Heart size is normal, without pericardial effusion. No mediastinal or hilar adenopathy. Thoracic aorta is normal in caliber and enhancement. Esophagus is normal in caliber, without hiatal hernia. Bones and chest wall: No suspicious bony lesions. Ribs and thoracic spine appear intact throughout. Thyroid gland is unremarkable as visualized. No axillary or supraclavicular adenopathy. Abdomen: Visualized upper abdominal solid organs appear normal in the early arterial phase of enhancement. IMPRESSION: 1. No evidence of pulmonary emboli. 2. At least 7 pulmonary nodules, 3 mm in diameter, too small to characterize, possibly representing benign disease. Comment: Please refer to chart below for followup recommendations. Fleischner Society criteria for SOLID lung nodule followup. Nodule size (mm)Low-risk patientHigh-risk patient<6 (single or multiple)No routine followup.Optional CT at 12 months. 6-8 (single or multiple)CT at 6-12 months, then optional CT at 18-24 mo.CT at 6-12 months, then CT at 18-24 months. >8 (single)CT at 3 months, PET-CT, or biopsy. Same as for low-risk pts. >8 (multiple)CT at 3-6 months, then optional CT at 18-24 mo.CT at 3-6 months, then CT at 18-24 months. Fleischner Society criteria for SUB-SOLID lung nodule followup. Solitary pure ground-glass nodules<6 mm (ground glass or part solid)No followup needed. 6 mm or larger (ground glass)CT at 6-12 months to confirm persistence, then CT every 2 years until 5 years.6 mm or larger (part solid)CT at 3-6 months to confirm persistence, then annual CT until 5 years if unchanged and solid component remains <6 mm. Multiple sub-solid nodules<6 mmCT at 3-6 months, then CT consider at 2 & 4 years for high risk patients. [address] at 3-6 months. Subsequent management based on most suspicious lesions. Recommendations do not apply to lung cancer screening, patients with immunosuppression, or patients with known primary cancer. Dictated by: Neftaly Schaffer M.D. on 07/26/2019 at 12:15 Approved by: Neftaly Schaffer M.D. on 07/26/2019 at 12:22
== END ==
PROVIDERS: Family Provider Family Medicine; PCP Physician Assistant Medical; Referring Provider Internal Medicine Cardiovascular Disease; Visit Provider Internal Medicine Cardiovascular Disease
DX: R07.9 Chest pain, unspecified (principal); R91.8 Other nonspecific abnormal finding of lung field
CPT/HCPCS: 71275; Q9967

== ENCOUNTER 2023-07-11 12:38 | Emergency (ER) | payer OTHER, SELFPAY ==
[2023-02-17 13:19] VITALS: BMI 32.9
[2023-07-11 12:44] VITALS: BP 121/57; PULSE 67; RESP 18; TEMP 35.8; O2SAT 97; BMI 36.0
--- NOTE | 2023-07-11 12:47 | DI.RAD.S_ITS ---
PROCEDURE: XR CHEST 2V INDICATIONS: Cough x15 days TECHNIQUE: 2 views of the chest were acquired. COMPARISON: None. FINDINGS: Surgical changes and devices: None. Lungs and pleura: Lungs are clear. No pleural effusions or pneumothorax. Mediastinum: Mediastinal contours are normal. Heart size is normal. Bones and chest wall: No suspicious bony abnormalities. Soft tissues appear unremarkable. IMPRESSION: No acute cardiopulmonary abnormality is seen. Dictated by: Kelli Overton MD, PhD on 07/11/2023 at 13:33 Approved by: Kelli Overton MD, PhD on 07/11/2023 at 13:34
[2023-07-11] MEDS: BENZONATATE 100 MG CAPSULE 200 MG PO (13:51)
--- NOTE | 2023-07-11 13:54 | DI.CT.S_ITS ---
PROCEDURE: CT CHEST WO CON INDICATIONS: cough TECHNIQUE: Noncontrast 5 mm thick sections acquired from the pulmonary apices to the posterior costophrenic angles. 1 mm lung window, 5 mm thick coronal and sagittal and 7 mm axial MIP reformats were then acquired. For radiation dose reduction, the following was used: automated exposure control, adjustment of mA and/or kV according to patient size. COMPARISON: [facility], CT, CT ANGIO CHEST PE PROTOCOL, 07/26/2019, 11:35. FINDINGS: Image quality: Diagnostic. Lower Neck: No enlarged lymph nodes. Thyroid: No thyroid nodules which require sonographic follow up, per consensus guidelines. Axillae: No enlarged lymph nodes. Chest Wall: Unremarkable. Bones: Unremarkable. Lungs and Pleura: No pneumothorax or pleural effusions. Few small scattered ground-glass opacities in the right upper lobe. Stable small bilateral lung nodules. Heart: Heart size is normal. No pericardial effusion. Thoracic Vessels: The aorta and pulmonary arteries demonstrate normal size. Mediastinum and Beth: No enlarged lymph nodes. Esophagus: No wall thickening. No hiatal hernia. Upper Abdomen: No acute disease process in the visualized abdomen.Gallbladder is surgically absent. Partially visualized left renal cyst. IMPRESSION: Small scattered ground-glass opacities in the right upper lobe which could be inflammatory infectious. No lung consolidation. No pleural effusions. Dictated by: Kelli Overton MD, PhD on 07/11/2023 at 14:54 Approved by: Kelli Overton MD, PhD on 07/11/2023 at 14:58
[2023-07-11] MEDS: ALBUTEROL 2.5 MG/3 ML NEB (ADULT) INH (13:57)
[2023-07-11 14:24] LABS: Add Manual Diff / Slide Review NO; Basophils Absolute Auto 100 /uL (0-100); Basophils Percent Auto 1.3 % (0-2); Eosinophils Absolute Auto 300 /uL (0-450); Eosinophils Percent Auto 3.7 % (2-4); Hematocrit 44.9 % (36-46); Hemoglobin 14.9 g/dL (12.0-16.0); Lymphocytes Absolute Auto 2000 /uL (1100-4500); Lymphocytes Percent Auto 21.8 % (25-40); Mean Corpuscular HGB Conc 33.3 % (30-36); Mean Corpuscular Hemoglobin 30.8 PG (26-34); Mean Corpuscular Volume 92.4 fL (80-100); Monocytes Absolute Auto 900 /uL (0-900); Monocytes Percent Auto 9.6 % (3-14); Neutrophils Absolute Auto 5900 /uL (1500-7000); Neutrophils Percent Auto 63.6 % (50-75); Platelet Count 377 X10^3/uL (150-400); Red Blood Cell Count 4.86 X10^6/uL (4.0-5.2); Red Cell Distribution Width 13.1 % (11.6-14.8); White Blood Cell Count 9.3 X10^3/uL (4.5-11.0)
[2023-07-11 14:26] VITALS: BP 110/56; PULSE 63; RESP 18; O2SAT 96
[2023-07-11 14:38] LABS: Alanine Aminotransferase 46 IU/L (<35); Albumin 4.5 g/dL (3.5-5.0); Albumin Globulin Ratio 1.3 (1.0-2.8); Alkaline Phosphatase 181 U/L (38-126); Aspartate Aminotransferase 38 IU/L (14-36); BUN Creatinine Ratio 23.8 (6-22); Bilirubin Total 0.9 mg/dL (0.2-1.3); Blood Urea Nitrogen 19 mg/dL (7-17); Calcium 9.7 mg/dL (8.4-10.2); Carbon Dioxide 28 mmol/L (22-32); Chloride 105 mmol/L (98-107); Estimated Glomerular Filt Rate > 60 mL/min (>60); Globulin 3.4 g/dL (1.7-4.1); Glucose 109 mg/dL (80-110); HEMOLYSIS < 15 (0-50); Lipase 90 U/L (23-300); Potassium 3.8 mmol/L (3.4-5.1); Sodium 138 mmol/L (137-145); Total Protein 7.9 g/dL (6.3-8.2)
--- NOTE | 2023-07-11 14:38 | ED_ITS ---
HPI - General Adult <Jarrod Johnson PA-C - Last Filed: 07/11/23 15:53> General Chief complaint: Upper Respiratory Symptoms Stated complaint: Chronic cough 15days Time Seen by Provider: 07/11/23 13:05 Source: patient Mode of arrival: Ambulatory History of Present Illness HPI narrative: 72-year-old female with past medical history hypertension presents to the ED with 2 weeks of worsening cough. Patient states that she came down with a cold 2 weeks ago, however is left with a lingering cough. Patient states that the cough has been worsening over the last few days. Patient states the cough is sometimes productive. Patient states that she did feel somewhat clammy this morning and states that her lungs felt more rattly. Patient denies fever, chills, nausea, vomiting, chest pain, shortness of breath. Related Data Home Medications Medication Instructions Recorded Confirmed amlodipine 2.5 mg tablet 2.5 mg PO DAILY 07/24/19 07/18/22 carvedilol 12.5 mg tablet 12.5 mg PO BID 07/24/19 07/18/22 estradiol 1 mg tablet 1 mg PO BEDTIME 07/24/19 07/18/22 levothyroxine 25 mcg tablet 25 mcg PO DAILY 07/24/19 07/18/22 melatonin 3 mg tablet 3 mg PO BEDTIME 07/24/19 07/18/22 empagliflozin 10 mg tablet 10 mg PO DAILY 03/02/23 03/02/23 (Jardiance) Previous Rx's Medication Instructions Recorded oxyquinoline 0.025 %-sodium lauryl 1 ea vaginal .weekly pessary 07/18/22 sulfate 0.01 % vaginal gel #113.4 grams fluconazole 150 mg tablet 150 mg PO Q3D 2 doses #2 tabs 03/16/23 azithromycin 250 mg tablet See Rx Instructions PO .COMPLEX #6 07/11/23 (Zithromax Z-Jacob) tabs benzonatate 200 mg capsule 200 mg PO TID PRN cough #30 caps 07/11/23 codeine 10 mg-guaifenesin 100 mg/5 5 ml PO Q6H PRN cough #118 mL 07/11/23 mL oral liquid Allergies Allergy/AdvReac Type Severity Reaction Status Date / Time doxycycline [From Vibramycin] Allergy Verified 07/11/23 12:46 Review of Systems <Jarrod Johnson PA-C - Last Filed: 07/11/23 15:53> Constitutional Constitutional: Denies chills, Denies fatigue, Denies fever(s), Denies frequent falls, Denies lethargy and Denies weakness Eyes Eyes: Denies change in vision, Denies eye discharge, Denies irritation and Denies loss of vision ENT Ears, Nose, Mouth, and Throat: Denies change in voice, Denies dizziness, Denies neck pain, Denies sore throat and Denies throat swelling Cardiovascular Cardiovascular: Denies chest pain, Denies irregular heart rhythm, Denies lightheadedness, Denies palpitations, Denies dyspnea, Denies dyspnea on exertion and Denies orthopnea Respiratory Respiratory: Reports cough, Denies dyspnea, Denies dyspnea on exertion and Denies wheezing Gastrointestinal Gastrointestinal: Denies abdominal pain, Denies change in bowel habits, Denies diarrhea, Denies nausea and Denies vomiting Musculoskeletal Musculoskeletal: Denies neck pain and Denies numbness Integumentary/Breasts Skin/Breast: Denies pruritus, Denies erythema, Denies rash and Denies wounds Neurologic Neurologic: Denies behavioral changes, Denies confusion, Denies dizziness, Denies frequent falls, Denies loss of vision, Denies numbness and Denies weakness Psychiatric Psychiatric: Denies anxiety, Denies behavioral changes, Denies confusion, Denies depression, Denies homicidal ideation and Denies suicidal ideation Endocrine Endocrine: Denies fatigue, Denies flushing and Denies palpitations Hematologic/Lymphatic Hematologic/Lymphatic: Denies easy bruising Allergic/Immunologic Allergic/Immunologic: Denies urticaria, Denies throat swelling and Denies wheezing Patient History <Jarrod Johnson PA-C - Last Filed: 07/11/23 15:53> Medical History H/O vaginal delivery Hypertension Surgical History History of right hip replacement Hx of rhinoplasty Hx of hysterectomy History of cholecystectomy Family History Mother Hypertension COPD (chronic obstructive pulmonary disease) Father Heart disease Social History household members: family Smoking Status: Former smoker Smoking Status: Former smoker alcohol intake frequency: holidays/special occasions only Substance Use Type: does not use Exam <Jarrod Johnson PA-C - Last Filed: 07/11/23 15:53> Narrative Exam Narrative: Const General:?cooperative, healthy appearing and comfortable [facility] Head:?normal to inspection Ears:?hearing grossly normal bilaterally Nose:?external nose normal Face and sinus:?normal facial exam and sinuses nontender Mouth:?oral mucosae normal Throat:?posterior oropharynx normal Eyes General:?appearance normal, both eyes and all related structures Neck Neck:?normal visual inspection and no lymphadenopathy noted Resp Effort & Inspection:?normal respiratory effort Auscultation:?R sided coarse crackles; diffuse wheezing Cardio Rate:?regular rate Rhythm:?regular rhythm Neuro General:?patient alert, patient awake and patient oriented x3 Initial Vital Signs Initial Vital Signs: Vital Signs Temperature 96.4 F L 07/11/23 12:44 Pulse Rate 67 07/11/23 12:44 Respiratory Rate 18 07/11/23 12:44 Blood Pressure 121/57 L 07/11/23 12:44 Pulse Oximetry 97 07/11/23 12:44 Oxygen Delivery Method Room Air 07/11/23 12:44 <Bessy Green MD - Last Filed: 07/12/23 18:29> Initial Vital Signs Initial Vital Signs: Vital Signs Temperature 96.4 F L 07/11/23 12:44 Pulse Rate 67 07/11/23 12:44 Respiratory Rate 18 07/11/23 12:44 Blood Pressure 121/57 L 07/11/23 12:44 Pulse Oximetry 97 07/11/23 12:44 Oxygen Delivery Method Room Air 07/11/23 12:44 Course <Jarrod Johnson PA-C - Last Filed: 07/11/23 15:53> Orders Ordered: Discontinued Medications Albuterol (Albuterol 2.5 Mg/3 Ml Neb (Adult)) 2.5 mg INH NOW ONE Stop: 07/11/23 13:55 Last Admin: 07/11/23 13:57 Dose: 2.5 mg Documented By: BEBETO Benzonatate (Benzonatate 100 Mg Capsule) 200 mg PO NOW ONE Stop: 07/11/23 13:45 Last Admin: 07/11/23 13:51 Dose: 200 mg Documented By: SB Vital Signs Vital signs: Vital Signs - 8 hr 07/11/23 12:44 07/11/23 14:26 07/11/23 15:44 Temperature 96.4 F L 97.6 F Pulse Rate 67 63 60 Respiratory Rate 18 18 18 Blood Pressure 121/57 L 110/56 L 120/58 L Pulse Oximetry 97 96 97 Oxygen Delivery Method Room Air Room Air Room Air <Bessy Green MD - Last Filed: 07/12/23 18:29> Orders Ordered: Discontinued Medications Albuterol (Albuterol 2.5 Mg/3 Ml Neb (Adult)) 2.5 mg INH NOW ONE Stop: 07/11/23 13:55 Last Admin: 07/11/23 13:57 Dose: 2.5 mg Documented By: BEBETO Benzonatate (Benzonatate 100 Mg Capsule) 200 mg PO NOW ONE Stop: 07/11/23 13:45 Last Admin: 07/11/23 13:51 Dose: 200 mg Documented By: FELICIANO Vital Signs Vital signs: Vital Signs - 8 hr 07/11/23 12:44 07/11/23 14:26 07/11/23 15:44 Temperature 96.4 F L 97.6 F Pulse Rate 67 63 60 Respiratory Rate 18 18 18 Blood Pressure 121/57 L 110/56 L 120/58 L Pulse Oximetry 97 96 97 Oxygen Delivery Method Room Air Room Air Room Air Medical Decision Making <Jarrod Johnson PA-C - Last Filed: 07/11/23 15:53> Lab Data 07/11/23 14:11 07/11/23 14:11 Labs: Lab Results 07/11/23 Range/Units 14:11 WBC 9.3 (4.5-11.0) X10^3/uL RBC 4.86 (4.0-5.2) X10^6/uL Hgb 14.9 (12.0-16.0) g/dL Hct 44.9 (36-46) % MCV 92.4 (80-100) fL MCH 30.8 (26-34) PG MCHC 33.3 (30-36) % RDW 13.1 (11.6-14.8) % Plt Count 377 (150-400) X10^3/uL Neut % (Auto) 63.6 (50-75) % Lymph % (Auto) 21.8 L (25-40) % Gooding % (Auto) 9.6 (3-14) % Eos % (Auto) 3.7 (2-4) % Baso % (Auto) 1.3 (0-2) % Neut # (Auto) 5900 (1406-3578) /uL Lymph # (Auto) 2000 (5248-8519) /uL Gooding # (Auto) 900 (0-900) /uL Eos # (Auto) 300 (0-450) /uL Baso # (Auto) 100 (0-100) /uL Sodium 138 (137-145) mmol/L Potassium 3.8 (3.4-5.1) mmol/L Chloride 105 (98-107) mmol/L Carbon Dioxide 28 (22-32) mmol/L BUN 19 H (7-17) mg/dL Creatinine 0.80 (0.52-1.04) mg/dL Estimated GFR > 60 (>60) mL/min BUN/Creatinine Ratio 23.8 H (6-22) Glucose 109 (80-110) mg/dL Calcium 9.7 (8.4-10.2) mg/dL Total Bilirubin 0.9 (0.2-1.3) mg/dL AST 38 H (14-36) IU/L ALT 46 H (<35) IU/L Alkaline Phosphatase 181 H (38-126) U/L Total Protein 7.9 (6.3-8.2) g/dL Albumin 4.5 (3.5-5.0) g/dL Globulin 3.4 (1.7-4.1) g/dL Albumin/Globulin Ratio 1.3 (1.0-2.8) Lipase 90 (23-300) U/L Procalcitonin 0.06 (<0.5) ng/mL MDM Narrative Medical decision making narrative: 72-year-old female with past medical history hypertension presents to the ED with 2 weeks of worsening cough. Concern for acute bronchitis versus pneumonia versus other. Patient was given a nebulizer treatment with albuterol. Wheezing improved with albuterol. CXR was read as normal. A Chest CT was obtained which shows small scattered ground-glass opacities in the right upper lobe which could be inflammatory or infectious. Discussed findings with patient that she could have an infectious process such as pneumonia. Prescribed Tessalon Perles, codeine cough syrup, Z-Jacob. Recommend albuterol inhaler if wheezing. Recommend good hydration. Recommend follow-up with PCP as soon as possible. ED return precautions discussed with patient. Patient verbalized understanding. Medical records reviewed: Yes <Bessy Green MD - Last Filed: 07/12/23 18:29> Lab Data Labs: Lab Results 07/11/23 Range/Units 14:11 WBC 9.3 (4.5-11.0) X10^3/uL RBC 4.86 (4.0-5.2) X10^6/uL Hgb 14.9 (12.0-16.0) g/dL Hct 44.9 (36-46) % MCV 92.4 (80-100) fL MCH 30.8 (26-34) PG MCHC 33.3 (30-36) % RDW 13.1 (11.6-14.8) % Plt Count 377 (150-400) X10^3/uL Neut % (Auto) 63.6 (50-75) % Lymph % (Auto) 21.8 L (25-40) % Gooding % (Auto) 9.6 (3-14) % Eos % (Auto) 3.7 (2-4) % Baso % (Auto) 1.3 (0-2) % Neut # (Auto) 5900 (0267-0128) /uL Lymph # (Auto) 2000 (3965-9002) /uL Gooding # (Auto) 900 (0-900) /uL Eos # (Auto) 300 (0-450) /uL Baso # (Auto) 100 (0-100) /uL Sodium 138 (137-145) mmol/L Potassium 3.8 (3.4-5.1) mmol/L Chloride 105 (98-107) mmol/L Carbon Dioxide 28 (22-32) mmol/L BUN 19 H (7-17) mg/dL Creatinine 0.80 (0.52-1.04) mg/dL Estimated GFR > 60 (>60) mL/min BUN/Creatinine Ratio 23.8 H (6-22) Glucose 109 (80-110) mg/dL Calcium 9.7 (8.4-10.2) mg/dL Total Bilirubin 0.9 (0.2-1.3) mg/dL AST 38 H (14-36) IU/L ALT 46 H (<35) IU/L Alkaline Phosphatase 181 H (38-126) U/L Total Protein 7.9 (6.3-8.2) g/dL Albumin 4.5 (3.5-5.0) g/dL Globulin 3.4 (1.7-4.1) g/dL Albumin/Globulin Ratio 1.3 (1.0-2.8) Lipase 90 (23-300) U/L Procalcitonin 0.06 (<0.5) ng/mL Discharge Plan Departure Patient Disposition: Home Clinical Impression: Pneumonia Qualifiers: Pneumonia type: due to unspecified organism Laterality: right Lung location: u nspecified part of lung Qualified Code(s): J18.9 - Pneumonia, unspecified organism Instructions: DI for Pneumonia -- Adult Activity Restrictions/Additional Instructions: You were evaluated in the ED today for a persistent cough. Your CT scan did show possible pneumonia. You are being prescribed antibiotics. You were also being prescribed Tessalon Perles for cough as well as a codeine cough syrup. The codeine cough syrup will make you sleepy, therefore please do not drive or operate machinery when taking it. Please also exercise fall precautions. You may also use your inhaler for wheezing. Please follow-up with your PCP as soon as possible. Return to the ED if you have worsening symptoms, chest pain, shortness of breath. Prescriptions: New azithromycin [Zithromax Z-Jacob] 250 mg tablet See Rx Instructions .ROUTE .COMPLEX Qty: 6 0RF Rx Instructions: For 250 mg dose pack: take 500 mg today (day 1), then 250 mg for 4 days (days 2-5) benzonatate 200 mg capsule 200 mg PO TID PRN (Reason: cough) Qty: 30 0RF codeine-guaifenesin 10-100 mg/5 mL liquid 5 ml PO Q6H PRN (Reason: cough) Qty: 118 0RF No Action fluconazole 150 mg tablet 150 mg PO Q3D Qty: 2 0RF Rx Instructions: take one tab, then in 3 days take the last tab. Jardiance 10 mg tablet 10 mg PO DAILY oxyquinoline-sod.lauryl sulfat 0.025-0.01 % gel 1 ea vaginal .weekly Qty: 113.4 0RF Rx Instructions: Apply to vagina once weekly. carvedilol 12.5 mg Tablet 12.5 mg PO BID amlodipine 2.5 mg Tablet 2.5 mg PO DAILY Rx Instructions: takes at bedtime melatonin 3 mg Tablet 3 mg PO BEDTIME levothyroxine 25 mcg Tablet 25 mcg PO DAILY estradiol 1 mg Tablet 1 mg PO BEDTIME Referrals: Princess Avalos PA-C [Primary Care Provider] - Stand Alone Forms: Patient Portal/API ED Sign-out <Bsesy Green MD - Last Filed: 07/12/23 18:29> Cosign ED Attending Horace Attestation: I was immediately available in the department for consultation throughout this patient's visit. Bessy Green MD
[2023-07-11 14:55] LABS: Procalcitonin 0.06 ng/mL (<0.5)
[2023-07-11 15:44] VITALS: BP 120/58; PULSE 60; RESP 18; TEMP 36.4; O2SAT 97
[2023-07-11 15:46] VITALS: BP 120/58; PULSE 72; RESP 16; TEMP 36.4; O2SAT 96
== END 2023-07-11 15:45 | disposition home or self-care (01) ==
PROVIDERS: Emergency Provider Student in an Organized Health Care Education/Training Program; Family Provider Family Medicine; PCP Physician Assistant Medical
DX: J18.9 Pneumonia, unspecified organism (principal); Z87.891 Personal history of nicotine dependence
CPT/HCPCS: 36415; 71046; 71250; 80053; 83690; 84145; 85025; 99284; J7613

== ENCOUNTER 2023-08-17 15:04 | Emergency (ER) | payer OTHER, SELFPAY ==
[2023-02-17 13:19] VITALS: BMI 32.9
[2023-08-17] VITALS (9 sets, daily range): BP systolic 141–164; BP diastolic 67–83; PULSE 67–97; RESP 18–22; TEMP 36.8–36.9; O2SAT 96–98; BMI 37.3
--- NOTE | 2023-08-17 15:19 | DI.RAD.S_ITS ---
PROCEDURE: XR CHEST 1V INDICATIONS: Shortness of breath TECHNIQUE: One view of the chest was acquired. COMPARISON: [facility], CR, XR CHEST 2V, 07/11/2023, 12:50. [facility], CT, CT CHEST WO CON, 07/11/2023, 13:59. [facility], CR, XR CHEST 1V, 07/23/2019, 18:05. FINDINGS: Surgical changes and devices: None. Lungs and pleura: Lungs are clear. Previously seen ground-glass opacities in the right upper lobe are not well visualized radiographically and may have resolved. No pleural effusions or pneumothorax. Mediastinum: Mediastinal contours appear normal. Heart size is normal. Bones and chest wall: No suspicious bony lesions. Overlying soft tissues appear unremarkable. IMPRESSION: No acute cardiopulmonary abnormality is seen. Approved by: Brice Santos M.D. on 08/17/2023 at 16:54
[2023-08-17 15:40] LABS: Add Manual Diff / Slide Review NO; Basophils Absolute Auto 100 /uL (0-100); Eosinophils Absolute Auto 300 /uL (0-450); Eosinophils Percent Auto 4.3 % (2-4); Hematocrit 44.9 % (36-46); Hemoglobin 15.1 g/dL (12.0-16.0); Lymphocytes Absolute Auto 2000 /uL (1100-4500); Lymphocytes Percent Auto 24.9 % (25-40); Mean Corpuscular HGB Conc 33.6 % (30-36); Mean Corpuscular Hemoglobin 31.1 PG (26-34); Mean Corpuscular Volume 92.5 fL (80-100); Monocytes Absolute Auto 1200 /uL (0-900); Monocytes Percent Auto 15.9 % (3-14); Neutrophils Absolute Auto 4200 /uL (1500-7000); Neutrophils Percent Auto 53.9 % (50-75); Platelet Count 311 X10^3/uL (150-400); Red Blood Cell Count 4.86 X10^6/uL (4.0-5.2); Red Cell Distribution Width 13.5 % (11.6-14.8); White Blood Cell Count 7.8 X10^3/uL (4.5-11.0)
[2023-08-17 15:47] LABS: Prothrombin Time 11.2 SECONDS (9.4-12.5)
[2023-08-17 16:04] LABS: Alanine Aminotransferase 22 IU/L (<35); Albumin 3.9 g/dL (3.5-5.0); Albumin Globulin Ratio 1.3 (1.0-2.8); Alkaline Phosphatase 128 U/L (38-126); Aspartate Aminotransferase 24 IU/L (14-36); BUN Creatinine Ratio 35.9 (6-22); Bilirubin Total 0.6 mg/dL (0.2-1.3); Blood Urea Nitrogen 23 mg/dL (7-17); Calcium 8.6 mg/dL (8.4-10.2); Carbon Dioxide 21 mmol/L (22-32); Chloride 108 mmol/L (98-107); Estimated Glomerular Filt Rate > 60 mL/min (>60); Globulin 2.9 g/dL (1.7-4.1); Glucose 121 mg/dL (80-110); HEMOLYSIS 17 (0-50); Potassium 4.1 mmol/L (3.4-5.1); Sodium 135 mmol/L (137-145); Total Protein 6.8 g/dL (6.3-8.2)
[2023-08-17 16:05] LABS: Lactate (Lactic Acid) 1.2 mmol/L (0.7-2.1)
[2023-08-17 16:15] LABS: NT-proBNP (BNP-Adult 18+) 154 pg/mL (<125); Troponin I < 0.012 ng/mL (0.01-0.034)
--- NOTE | 2023-08-17 19:21 | ED.SOB ---
HPI - SOB/Dyspnea General Chief Complaint: Shortness of Breath/Dyspnea Stated Complaint: possible pneumonia Time Seen by Provider: 08/17/23 18:24 Source: patient Mode of arrival: Ambulatory Limitations: no limitations History of Present Illness HPI Narrative: 72-year-old female presents for cough for the last 8-10 weeks. Patient states that she was intermittently been put on prednisone and albuterol, which somewhat helps her symptoms, however they recur. She was tried [id number] cough and cold medications without significant relief. Patient was concerned that she may have redeveloped pneumonia or may have cancer. Patient states that several months ago she had spirometry performed, and she states that the personnel and payroll technician who did her pulmonary labs stated that there may be some abnormality. Patient states that there has been a referral in for pulmonology but she was not been able to make an appointment. Related Data Home Medications Medication Instructions Recorded Confirmed amlodipine 2.5 mg tablet 2.5 mg PO DAILY 07/24/19 07/18/22 carvedilol 12.5 mg tablet 12.5 mg PO BID 07/24/19 07/18/22 estradiol 1 mg tablet 1 mg PO BEDTIME 07/24/19 07/18/22 levothyroxine 25 mcg tablet 25 mcg PO DAILY 07/24/19 07/18/22 melatonin 3 mg tablet 3 mg PO BEDTIME 07/24/19 07/18/22 empagliflozin 10 mg tablet 10 mg PO DAILY 03/02/23 03/02/23 (Jardiance) Previous Rx's Medication Instructions Recorded oxyquinoline 0.025 %-sodium lauryl 1 ea vaginal .weekly pessary 07/18/22 sulfate 0.01 % vaginal gel #113.4 grams fluconazole 150 mg tablet 150 mg PO Q3D 2 doses #2 tabs 03/16/23 azithromycin 250 mg tablet See Rx Instructions PO .COMPLEX #6 07/11/23 (Zithromax Z-Jacob) tabs benzonatate 200 mg capsule 200 mg PO TID PRN cough #30 caps 07/11/23 codeine 10 mg-guaifenesin 100 mg/5 5 ml PO Q6H PRN cough #118 mL 07/11/23 mL oral liquid Allergies Allergy/AdvReac Type Severity Reaction Status Date / Time doxycycline [From Vibramycin] Allergy Verified 07/11/23 12:46 epinephrine AdvReac Palpitation Verified 08/17/23 15:14 s Review of Systems Review of Systems Narrative: See HPI Patient History Medical History H/O vaginal delivery Hypertension Surgical History History of right hip replacement Hx of rhinoplasty Hx of hysterectomy History of cholecystectomy Family History Mother Hypertension COPD (chronic obstructive pulmonary disease) Father Heart disease Social History household members: family Smoking Status: Former smoker Smoking Status: Former smoker alcohol intake frequency: holidays/special occasions only Substance Use Type: does not use Exam Initial Vital Signs Initial Vital Signs: Vital Signs Temperature 98.2 F 08/17/23 15:14 Pulse Rate 69 08/17/23 15:14 Respiratory Rate 18 08/17/23 15:14 Blood Pressure 141/67 H 08/17/23 15:14 Pulse Oximetry 97 08/17/23 15:14 Oxygen Delivery Method Room Air 08/17/23 15:14 Const: Awake, alert, no acute distress, nontoxic appearing Cardiac: regular rate, regular rhythm RESP: unlabored, clear bilaterally, no wheezing GI: Soft, nontender, nondistended, no rebound, no guarding MSK: Atraumatic, full range of motion, pulses equal Skin: Warm, Dry, intact, no rashes Neuro: AO x3, CN II-XII grossly intact, moves all extremities Course Orders Ordered: Discontinued Medications Albuterol/Ipratropium (Albuterol/Ipratropium 3 Ml Ampul) 9 ml INH NOW ONE Stop: 08/17/23 19:33 Last Admin: 08/17/23 19:55 Dose: 9 ml Documented By: KEZIA Vital Signs Vital signs: Vital Signs - 8 hr 08/17/23 15:14 08/17/23 18:36 08/17/23 20:14 Temperature 98.2 F 98.2 F Pulse Rate 69 97 H 70 Respiratory Rate 18 22 18 Blood Pressure 141/67 H 145/72 H Pulse Oximetry 97 98 98 Oxygen Delivery Method Room Air Room Air Room Air 08/17/23 20:41 08/17/23 20:42 08/17/23 20:42 Temperature Pulse Rate 68 67 Respiratory Rate Blood Pressure 153/70 H 153/70 H Pulse Oximetry 97 96 Oxygen Delivery Method 08/17/23 21:00 08/17/23 21:00 08/17/23 21:30 Temperature Pulse Rate 70 71 Respiratory Rate Blood Pressure 154/77 H Pulse Oximetry 96 97 Oxygen Delivery Method 08/17/23 21:30 08/17/23 21:57 08/17/23 22:00 Temperature 98.5 F Pulse Rate 73 Respiratory Rate Blood Pressure 164/83 H Pulse Oximetry 97 Oxygen Delivery Method Room Air MDM - SOB/Dyspnea Differential Diagnosis Differential diagnosis: Likely acute exacerbation of chronic obstructive airways disease, congestive heart failure and community acquired pneumonia Lab Data 08/17/23 15:30 08/17/23 15:30 Labs: Lab Results 08/17/23 08/17/23 Range/Units 15:30 20:30 WBC 7.8 (4.5-11.0) X10^3/uL RBC 4.86 (4.0-5.2) X10^6/uL Hgb 15.1 (12.0-16.0) g/dL Hct 44.9 (36-46) % MCV 92.5 (80-100) fL MCH 31.1 (26-34) PG MCHC 33.6 (30-36) % RDW 13.5 (11.6-14.8) % Plt Count 311 (150-400) X10^3/uL Neut % (Auto) 53.9 (50-75) % Lymph % (Auto) 24.9 L (25-40) % [place]ide % (Auto) 15.9 H (3-14) % Eos % (Auto) 4.3 H (2-4) % Baso % (Auto) 1.0 (0-2) % Neut # (Auto) 4200 (1116-6601) /uL Lymph # (Auto) 2000 (3617-0766) /uL [place]ide # (Auto) 1200 H (0-900) /uL Eos # (Auto) 300 (0-450) /uL Baso # (Auto) 100 (0-100) /uL PT 11.2 (9.4-12.5) SECONDS INR 1.0 (0.9-1.3) Sodium 135 L (137-145) mmol/L Potassium 4.1 (3.4-5.1) mmol/L Chloride 108 H (98-107) mmol/L Carbon Dioxide 21 L (22-32) mmol/L BUN 23 H (7-17) mg/dL Creatinine 0.64 (0.52-1.04) mg/dL Estimated GFR > 60 (>60) mL/min BUN/Creatinine Ratio 35.9 H (6-22) Glucose 121 H (80-110) mg/dL Lactate 1.2 (0.7-2.1) mmol/L Calcium 8.6 (8.4-10.2) mg/dL Total Bilirubin 0.6 (0.2-1.3) mg/dL AST 24 (14-36) IU/L ALT 22 (<35) IU/L Alkaline Phosphatase 128 H (38-126) U/L Troponin I < 0.012 (0.01-0.034) ng/mL NT-Pro-B Natriuret Pep 154 H (<125) pg/mL Total Protein 6.8 (6.3-8.2) g/dL Albumin 3.9 (3.5-5.0) g/dL Globulin 2.9 (1.7-4.1) g/dL Albumin/Globulin Ratio 1.3 (1.0-2.8) SARS-CoV-2 (PCR) Negative (Negative) Influenza A (RT-PCR) Flu a negative (NEGATIVE) Influenza B (RT-PCR) Flu b negative (NEGATIVE) RSV (PCR) Negative (Negative) Imaging Data Chest x-ray: My Impression: PROCEDURE: XR CHEST 1V INDICATIONS: Shortness of breath TECHNIQUE: One view of the chest was acquired. COMPARISON: [facility], CR, XR CHEST 2V, 07/11/2023, 12:50. [facility], CT, CT CHEST WO CON, 07/11/2023, 13:59. [facility], CR, XR CHEST 1V, 07/23/2019, 18:05. FINDINGS: Surgical changes and devices: None. Lungs and pleura: Lungs are clear. Previously seen ground-glass opacities in the right upper lobe are not well visualized radiographically and may have resolved. No pleural effusions or pneumothorax. Mediastinum: Mediastinal contours appear normal. Heart size is normal. Bones and chest wall: No suspicious bony lesions. Overlying soft tissues appear unremarkable. IMPRESSION: No acute cardiopulmonary abnormality is seen. Approved by: Brice Santos M.D. on 08/17/2023 at 16:54 MDM Narrative Medical decision making narrative: Chronic nonproductive cough without any relief. Patient may have some component of pulmonary disease based on her reports of her spirometry results, however these are not available to me and patient has not been able to follow up with a pulmonary doctor for confirmation. Lungs are clear to auscultation bilaterally, she was able to speak in complete sentences, however she does intermittently cough while speaking. No edema or suspicious weight loss recently. Record review shows that patient had CT scan on 07/11/2023 for her cough and other than small scattered ground-glass opacities in the right lobe there were no concerning findings such as nodules or masses. Laboratory work reviewed, relatively unremarkable. No leukocytosis, normal hemoglobin, electrolytes within normal limits. BNP is 154. Patient does not appear to be volume overloaded at this time. Since she has had a CT scan barely 1 month ago I do not feel there is any utility in repeating a CT scan at this time since her symptoms are largely unchanged, just persistent. X-ray imaging shows no acute process. Patient was given a incentive spirometer by [facility] as well as a DuoNeb treatment. Patient informed of lab and imaging results. She it was relieved to know that she does not have recurrent pneumonia. I re-emphasized the need for patient to follow up with pulmonology as referred. Discharge Plan Departure Patient Disposition: Home Clinical Impression: Cough Instructions: DI for Chronic Bronchitis Activity Restrictions/Additional Instructions: Your laboratory work and x-ray imaging did not show any acute findings. There was no evidence of pneumonia or cancer on your scans both today and from June. Do recommend following up with pulmonary to try and get to the bottom of your chronic cough. Prescriptions: No Action fluconazole 150 mg tablet 150 mg PO Q3D Qty: 2 0RF Rx Instructions: take one tab, then in 3 days take the last tab. Jardiance 10 mg tablet 10 mg PO DAILY oxyquinoline-sod.lauryl sulfat 0.025-0.01 % gel 1 ea vaginal .weekly Qty: 113.4 0RF Rx Instructions: Apply to vagina once weekly. azithromycin [Zithromax Z-Jacob] 250 mg tablet See Rx Instructions .ROUTE .COMPLEX Qty: 6 0RF Rx Instructions: For 250 mg dose pack: take 500 mg today (day 1), then 250 mg for 4 days (days 2-5) benzonatate 200 mg capsule 200 mg PO TID PRN (Reason: cough) Qty: 30 0RF codeine-guaifenesin 10-100 mg/5 mL liquid 5 ml PO Q6H PRN (Reason: cough) Qty: 118 0RF carvedilol 12.5 mg Tablet 12.5 mg PO BID amlodipine 2.5 mg Tablet 2.5 mg PO DAILY Rx Instructions: takes at bedtime melatonin 3 mg Tablet 3 mg PO BEDTIME levothyroxine 25 mcg Tablet 25 mcg PO DAILY estradiol 1 mg Tablet 1 mg PO BEDTIME Referrals: Princess Avalos PA-C [Primary Care Provider] - Stand Alone Forms: Patient Portal/API
--- NOTE | 2023-08-17 19:28 | PC.NURSE ---
Assumed cares from RAMON Barnett. Pt sitting up in [facility]. Reports that her wheezing is getting worse, she can now hear it all the time. RA sats 98%. Appears in NAD.
[2023-08-17] MEDS: ALBUTEROL/IPRATROPIUM 3 ML AMPUL 9 ML INH (19:55)
[2023-08-17 21:38] LABS: Influenza A - CEPHEID Flu A NEGATIVE (NEGATIVE); Influenza B - CEPHEID Flu B NEGATIVE (NEGATIVE); Respiratory Syncytial Virus Negative (Negative)
[2023-08-17 21:39] LABS: COVID-19 CEPHEID 4-PLEX PCR Negative (Negative)
== END 2023-08-17 22:13 | disposition home or self-care (01) ==
PROVIDERS: Emergency Medicine; Emergency Provider Emergency Medicine; Family Provider Family Medicine; PCP Physician Assistant Medical
DX: R05.9 Cough, unspecified (principal); R06.02 Shortness of breath; Z20.822 Contact with and (suspected) exposure to COVID-19
CPT/HCPCS: 0241U; 36415; 71045; 80053; 83605; 83880; 84484; 85025; 85610; 93005; 94640; 99284

== ENCOUNTER → 2024-01-17 13:29 | Outpatient (CLI) | payer OTHER, SELFPAY ==
[2023-02-17 13:19] VITALS: BMI 32.9
== END ==
PROVIDERS: Family Provider Family Medicine; PCP Physician Assistant Medical; Referring Provider Physician Assistant Medical; Visit Provider Physician Assistant Medical
DX: G62.9 Polyneuropathy, unspecified (principal)
CPT/HCPCS: 95886; 95911

== ENCOUNTER 2024-10-02 15:32 | Emergency (ER) | payer OTHER, SELFPAY ==
[2024-09-06 16:27] VITALS: BMI 32.9
[2024-10-02 15:44] VITALS: BP 162/74; PULSE 79; RESP 20; TEMP 37; O2SAT 94; BMI 39.6
--- NOTE | 2024-10-02 16:08 | DI.CT.S_ITS ---
PROCEDURE: CT ABDOMEN PELVIS W CON INDICATIONS: abd pain TECHNIQUE: After the administration of intravenous contrast, axial sections acquired from the lung bases to the pubic symphysis. Coronal and sagittal reformats were performed. For radiation dose reduction, the following was used: automated exposure control, adjustment of mA and/or kV according to patient size. COMPARISON: None. FINDINGS: Image quality: Diagnostic. Lower Chest: No significant findings. ABDOMEN: Liver: No solid mass. Gallbladder: Surgically absent. Biliary ducts: No biliary dilation. Pancreas: No ductal dilation. Spleen: Size is within normal limits. Tiny low-density foci, too small to characterize and may represent cysts. Adrenal Glands: No adrenal nodules. Kidneys and Ureters: No hydronephrosis. No solid mass. No complex renal cystic lesion which requires follow up. Simple bilateral renal cysts. Mild right perinephric stranding. Stomach and Bowel: Small hiatal hernia. Diverticulosis is seen with mild wall thickening of the sigmoid colon and surrounding inflammation. Normal appendix. Peritoneum: Trace fluid within the pelvis is likely reactive from diverticulitis. No free air. Ventral Wall: No significant ventral hernia. Abdominal Nodes: No retroperitoneal or mesenteric adenopathy by size criteria. Vessels: Aorta and inferior vena cava are normal in size. Atherosclerotic vascular calcifications. PELVIS: Pelvic Organs: Pessary in place. Hysterectomy. Bladder: No bladder wall thickening, accounting for underdistention. Pelvic Nodes: No enlarged lymph nodes. Miscellaneous: No inguinal hernias are seen. Bones: No aggressive osseous abnormality. Degenerative changes of the spine. Right hip arthroplasty. IMPRESSION: Findings consistent with acute uncomplicated diverticulitis. No extraluminal gas or organized fluid collections. Approved by: Michael Davis M.D. on 10/02/2024 at 17:05
[2024-10-02 16:23] LABS: Alanine Aminotransferase 24 IU/L (<35); Albumin 4.2 g/dL (3.5-5.0); Albumin Globulin Ratio 1.2 (1.0-2.8); Alkaline Phosphatase 90 U/L (38-126); Blood Urea Nitrogen 21 mg/dL (7-17); Calcium 9.7 mg/dL (8.4-10.2); Carbon Dioxide 22 mmol/L (22-32); Chloride 104 mmol/L (98-107); Estimated Glomerular Filt Rate > 60 mL/min (>60); Globulin 3.4 g/dL (1.7-4.1); Glucose 108 mg/dL (70-99); HEMOLYSIS < 15 (0-50); Lipase 53 U/L (23-300); Potassium 3.9 mmol/L (3.4-5.1); Sodium 135 mmol/L (137-145); Total Protein 7.6 g/dL (6.3-8.2)
[2024-10-02 16:39] LABS: Add Manual Diff / Slide Review NO; Hematocrit 45.2 % (36-46); Hemoglobin 15.2 g/dL (12.0-16.0); Lymphocytes Absolute Auto 2100 /uL (1100-4500); Mean Corpuscular HGB Conc 33.6 % (30-36); Mean Corpuscular Hemoglobin 31.2 PG (26-34); Mean Corpuscular Volume 92.9 fL (80-100); Platelet Count 272 X10^3/uL (150-400)
[2024-10-02 19:22] VITALS: PULSE 79; O2SAT 94
[2024-10-02 19:24] VITALS: BP 176/79; PULSE 79; O2SAT 97
[2024-10-02 19:30] VITALS: PULSE 77; O2SAT 96
[2024-10-02 20:00] VITALS: BP 143/64; PULSE 81; O2SAT 95
--- NOTE | 2024-10-02 20:00 | ED.ABDPAIN ---
HPI - Abdominal Pain General Chief Complaint: Abdominal Pain Stated Complaint: Abdominal Pain Time Seen by Provider: 10/02/24 19:21 Source: patient Mode of arrival: Ambulatory History of Present Illness HPI narrative: Pleasant 74-year-old woman with a history of diverticulitis comes to the ER with lower abdominal pain. She states that this feels just like her previous episodes but somewhat more severe. She denies any recent history of constipation. She has been experiencing some nausea today. Denies any recent blood in the stool. States she had a normal bowel movement yesterday. Denies any fever chills sweats chest pain shortness of breath or any other concerns at this time. Related Data Home Medications ?Medication ?Instructions ?Recorded ?Confirmed amlodipine 2.5 mg tablet 2.5 mg PO DAILY 07/24/19 08/28/23 carvedilol 12.5 mg tablet 12.5 mg PO BID 07/24/19 08/28/23 estradiol 1 mg tablet 1 mg PO BEDTIME 07/24/19 08/28/23 levothyroxine 25 mcg tablet 25 mcg PO DAILY 07/24/19 08/28/23 melatonin 3 mg tablet 3 mg PO BEDTIME 07/24/19 08/28/23 empagliflozin 10 mg tablet 10 mg PO DAILY 03/02/23 08/28/23 (Jardiance) Previous Rx's ?Medication ?Instructions ?Recorded fluconazole 150 mg tablet 150 mg PO Q3D 2 doses #2 tabs 03/16/23 azithromycin 250 mg tablet See Rx Instructions PO .COMPLEX #6 07/11/23 (Zithromax Z-Jacob) tabs benzonatate 200 mg capsule 200 mg PO TID PRN cough #30 caps 07/11/23 codeine 10 mg-guaifenesin 100 mg/5 5 ml PO Q6H PRN cough #118 mL 07/11/23 mL oral liquid oxyquinoline 0.025 %-sodium lauryl 1 ea vaginal .weekly pessary 08/28/23 sulfate 0.01 % vaginal gel #113.4 grams ciprofloxacin HCl 500 mg tablet 500 mg PO BID #20 tabs 10/02/24 (Cipro) hydrocodone 5 mg-acetaminophen 325 1 tab PO Q6H PRN pain #12 tabs 10/02/24 mg tablet metronidazole 500 mg tablet 500 mg PO Q8H #30 tabs 07/16/25 ondansetron 4 mg disintegrating 4 mg PO Q8H PRN nausea and 10/02/24 tablet vomiting #14 tabs Allergies Allergy/AdvReac Type Severity Reaction Status Date / Time doxycycline (From Vibramycin) Allergy Verified 10/02/24 15:45 epinephrine AdvReac Palpitation Verified 10/02/24 15:45 s Patient History Medical History H/O vaginal delivery Hypertension Surgical History History of right hip replacement Hx of rhinoplasty Hx of hysterectomy History of cholecystectomy Family History Mother Hypertension COPD (chronic obstructive pulmonary disease) Father Heart disease Social History household members: family Smoking Status: Never smoker Smoking Status: Never smoker alcohol intake frequency: holidays/special occasions only Exam Initial Vital Signs Initial Vital Signs: Vital Signs Temperature 98.6 F 10/02/24 15:44 Pulse Rate 79 10/02/24 15:44 Respiratory Rate 20 10/02/24 15:44 Blood Pressure 162/74 H 10/02/24 15:44 Pulse Oximetry 94 10/02/24 15:44 Oxygen Delivery Method Room Air 10/02/24 15:44 Const General: No acute distress and No ill appearing [facility] Head: normal to inspection, normocephalic and atraumatic Eyes General: Yes appearance normal, both eyes and all related structures EOM: EOM intact bilaterally Neck Neck: normal visual inspection, supple and No tender Resp Effort & Inspection: normal respiratory effort Auscultation: clear to auscultation bilaterally Cardio Rate: regular rate Rhythm: regular rhythm Heart Sounds: S1 normal and S2 normal GI Inspection: normal to inspection, distended and obesity Palpation: soft, No mass, No rigid and tender Auscultation: normal bowel sounds General: No CVA tenderness Neuro General: patient alert, patient awake, patient oriented x3, moves all extremities and CN's II-XI intact bilaterally Course Course Course Narrative: Patient seen and examined by myself once he was roomed. At this point her CT at already been done and to diverticulitis which was uncomplicated. The patient already has a known history of this. I offered her admission and she declined stating that she feels comfortable to treat this at home with oral medications. So I prescribed her Zofran, hydrocodone, Cipro, and Flagyl and she was given the 1st dose of antibiotics here in the ER. I advised her to return to the ER for any change or worsening in her condition especially fevers or [id number] pain. Otherwise, I advised her to call her PCP tomorrow to schedule an appointment to be seen for re-evaluation as soon as possible. The patient was in agreement with this plan. Orders Ordered: ED Orders 10/02/24 15:49 EKG-12 Lead Stat 10/02/24 16:04 Complete Blood Count AUTO DIFF Stat Comprehensive Metabolic Panel Stat Lipase Stat 10/02/24 16:08 CT abdomen pelvis w con Stat 10/02/24 19:51 Lactate (Lactic Acid) Stat Procalcitonin Stat Ondansetron HCl (Ondansetron 4 Mg/2 Ml Inj) 4 mg IV NOW PRN PRN Reason: Nausea And Vomiting Ondansetron HCl (Ondansetron 4 Mg Odt) 4 mg PO NOW PRN PRN Reason: Nausea And Vomiting Discontinued Medications Ciprofloxacin (Ciprofloxacin 250 Mg Tablet) 500 mg PO NOW ONE Stop: 10/02/24 19:54 Ketorolac Tromethamine (Ketorolac 30 Mg/Ml Vial) 30 mg IV NOW ONE Stop: 10/02/24 19:54 Metronidazole (Metronidazole 500 Mg Tablet) 500 mg PO NOW ONE Stop: 10/02/24 19:54 Vital Signs Vital signs: Vital Signs - 8 hr 10/02/24 15:44 Temperature 98.6 F Pulse Rate 79 Respiratory Rate 20 Blood Pressure 162/74 H Pulse Oximetry 94 Oxygen Delivery Method Room Air MDM - Abdominal Pain Differential Diagnosis Differential diagnosis: Likely abdominal pain, acute appendicitis, calculus of kidney, constipation, diverticulitis, endometriosis, gastroenteritis, pancreatitis and small bowel obstruction Lab Data 10/02/24 16:04 10/02/24 16:04 Labs: Lab Results 10/02/24 Range/Units 16:04 WBC 11.5 H (4.5-11.0) X10^3/uL RBC 4.87 (4.0-5.2) X10^6/uL Hgb 15.2 (12.0-16.0) g/dL Hct 45.2 (36-46) % MCV 92.9 (80-100) fL MCH 31.2 (26-34) PG MCHC 33.6 (30-36) % RDW 13.5 (11.6-14.8) % Plt Count 272 (150-400) X10^3/uL Neut % (Auto) 68.1 (50-75) % Lymph % (Auto) 18.7 L (25-40) % [place] % (Auto) 9.5 (3-14) % Eos % (Auto) 2.6 (2-4) % Baso % (Auto) 1.1 (0-2) % Neut # (Auto) 7800 H (7980-7304) /uL Lymph # (Auto) 2100 (0768-0851) /uL [place] # (Auto) 1100 H (0-900) /uL Eos # (Auto) 300 (0-450) /uL Baso # (Auto) 100 (0-100) /uL Sodium 135 L (137-145) mmol/L Potassium 3.9 (3.4-5.1) mmol/L Chloride 104 (98-107) mmol/L Carbon Dioxide 22 (22-32) mmol/L BUN 21 H (7-17) mg/dL Creatinine 0.67 (0.52-1.04) mg/dL Estimated GFR > 60 (>60) mL/min BUN/Creatinine Ratio 31.3 H (6-22) Glucose 108 H (70-99) mg/dL Calcium 9.7 (8.4-10.2) mg/dL Total Bilirubin 0.7 (0.2-1.3) mg/dL AST 29 (14-36) IU/L ALT 24 (<35) IU/L Alkaline Phosphatase 90 (38-126) U/L Total Protein 7.6 (6.3-8.2) g/dL Albumin 4.2 (3.5-5.0) g/dL Globulin 3.4 (1.7-4.1) g/dL Albumin/Globulin Ratio 1.2 (1.0-2.8) Lipase 53 (23-300) U/L Discharge Plan Departure Patient Disposition: Home Clinical Impression: Diverticulitis Instructions: DI for Diverticulitis Activity Restrictions/Additional Instructions: If there is any change or worsening in your condition such as fevers worsening or [id number] pain or any other concerns then please call 911 or return to the ER right away. Otherwise, please follow-up with your PCP as soon as possible. Prescriptions: New hydrocodone-acetaminophen 5-325 mg tablet 1 tab PO Q6H PRN (Reason: pain) Qty: 12 0RF metronidazole 500 mg tablet 500 mg PO Q8H Qty: 30 0RF ciprofloxacin HCl [Cipro] 500 mg tablet 500 mg PO BID Qty: 20 0RF ondansetron 4 mg tablet,disintegrating 4 mg PO Q8H PRN (Reason: nausea and vomiting) Qty: 14 0RF No Action fluconazole 150 mg tablet 150 mg PO Q3D Qty: 2 0RF Rx Instructions: take one tab, then in 3 days take the last tab. Jardiance 10 mg tablet 10 mg PO DAILY oxyquinoline-sod.lauryl sulfat 0.025-0.01 % gel 1 ea vaginal .weekly Qty: 113.4 3RF Rx Instructions: Apply to vagina once weekly. azithromycin [Zithromax Z-Jacob] 250 mg tablet See Rx Instructions .ROUTE .COMPLEX Qty: 6 0RF Rx Instructions: For 250 mg dose pack: take 500 mg today (day 1), then 250 mg for 4 days (days 2-5) benzonatate 200 mg capsule 200 mg PO TID PRN (Reason: cough) Qty: 30 0RF codeine-guaifenesin 10-100 mg/5 mL liquid 5 ml PO Q6H PRN (Reason: cough) Qty: 118 0RF carvedilol 12.5 mg Tablet 12.5 mg PO BID amlodipine 2.5 mg Tablet 2.5 mg PO DAILY Rx Instructions: takes at bedtime melatonin 3 mg Tablet 3 mg PO BEDTIME levothyroxine 25 mcg Tablet 25 mcg PO DAILY estradiol 1 mg Tablet 1 mg PO BEDTIME Referrals: Princess Avalos PA-C [Primary Care Provider, Medical] - As soon as possible Stand Alone Forms: Patient Portal/API
[2024-10-02] MEDS: CIPROFLOXACIN 250 MG TABLET 500 MG PO (20:17)
[2024-10-02] MEDS: KETOROLAC 30 MG/ML VIAL IV (20:19)
== END 2024-10-02 20:30 | disposition home or self-care (01) ==
PROVIDERS: Emergency Medicine; Emergency Provider Emergency Medicine; PCP Physician Assistant Medical
DX: K57.32 Diverticulitis of large intestine without perforation or abscess without bleeding (principal)
CPT/HCPCS: 74177; 80053; 83690; 85025; 96374; 99284; J1885; Q9967

== ENCOUNTER 2025-02-06 13:36 | Emergency (ER) | payer OTHER, SELFPAY ==
[2024-09-06 16:27] VITALS: BMI 32.9
[2025-02-06 13:42] VITALS: BP 172/79; PULSE 79; RESP 16; O2SAT 94; BMI 40.6
--- NOTE | 2025-02-06 13:54 | EKG_ITS ---
[address] [address] Test Date: 2025-02-06 Pat Name: Nimo Cody Department: Room: Gender: Female Corporate Director Of Pharmacy: BERTRAND : 1950 Requested By: Order Number: [id number] Reading MD: Parth Hunter MD Measurements Intervals [place] Rate: 74 P: 57 NC: 164 QRS: -16 QRSD: 96 T: 55 QT: 400 QTc: 444 Interpretive Statements Normal sinus rhythm Anterior infarct , age undetermined Electronically Signed On 02-06-2025 16:34:30 PST by Parth Hunter MD
--- NOTE | 2025-02-06 16:40 | ED.CHESTPAIN ---
HPI - Chest Pain General Chief Complaint: Chest Pain Stated Complaint: left Breast pain, 4 days Time Seen by Provider: 02/06/25 13:58 Source: patient Mode of arrival: Ambulatory Limitations: no limitations History of Present Illness HPI narrative: 74-year-old female with past medical history as listed below with significant history of breast cancer in sister presenting with left breast pain for the last 2 weeks, worse today. Denies personal or family cardiac history. The patient does take topical hormones after her hysterectomy. Recently dropped her dose approximately a month ago. Denies fevers, chills, nausea, vomiting, diarrhea, abdominal pain, shortness of breath, dizziness, headache, and urinary symptoms. Related Data Home Medications ?Medication ?Instructions ?Recorded ?Confirmed amlodipine 2.5 mg tablet 2.5 mg PO DAILY 07/24/19 08/28/23 carvedilol 12.5 mg tablet 12.5 mg PO BID 07/24/19 08/28/23 estradiol 1 mg tablet 1 mg PO BEDTIME 07/24/19 08/28/23 levothyroxine 25 mcg tablet 25 mcg PO DAILY 07/24/19 08/28/23 melatonin 3 mg tablet 3 mg PO BEDTIME 07/24/19 08/28/23 empagliflozin 10 mg tablet 10 mg PO DAILY 03/02/23 08/28/23 (Jardiance) Previous Rx's ?Medication ?Instructions ?Recorded fluconazole 150 mg tablet 150 mg PO Q3D 2 doses #2 tabs 03/16/23 azithromycin 250 mg tablet See Rx Instructions PO .COMPLEX #6 07/11/23 (Zithromax Z-Jacob) tabs benzonatate 200 mg capsule 200 mg PO TID PRN cough #30 caps 07/11/23 codeine 10 mg-guaifenesin 100 mg/5 5 ml PO Q6H PRN cough #118 mL 07/11/23 mL oral liquid oxyquinoline 0.025 %-sodium lauryl 1 ea vaginal .weekly pessary 08/28/23 sulfate 0.01 % vaginal gel #113.4 grams ciprofloxacin HCl 500 mg tablet 500 mg PO BID #20 tabs 10/02/24 (Cipro) hydrocodone 5 mg-acetaminophen 325 1 tab PO Q6H PRN pain #12 tabs 10/02/24 mg tablet metronidazole 500 mg tablet 500 mg PO Q8H #30 tabs 10/02/24 ondansetron 4 mg disintegrating 4 mg PO Q8H PRN nausea and 10/02/24 tablet vomiting #14 tabs Allergies Allergy/AdvReac Type Severity Reaction Status Date / Time doxycycline (From Vibramycin) Allergy Verified 10/02/24 15:45 epinephrine AdvReac Palpitation Verified 10/02/24 15:45 s Review of Systems Review of Systems ROS Unobtainable: All systems reviewed & are unremarkable except as noted in HPI and below Patient History Medical History H/O vaginal delivery Hypertension Surgical History History of right hip replacement Hx of rhinoplasty Hx of hysterectomy History of cholecystectomy Family History Mother Hypertension COPD (chronic obstructive pulmonary disease) Father Heart disease Social History household members: family alcohol intake frequency: holidays/special occasions only Exam Narrative Exam Narrative: Patient with significant left breast tenderness at approximately 4 o clock near the external border of the breast with a freely mobile but tender mass have that feels approximately 2.5 x 3 cm. Initial Vital Signs Initial Vital Signs: Vital Signs Pulse Rate 79 02/06/25 13:42 Respiratory Rate 16 02/06/25 13:42 Blood Pressure 172/79 H 02/06/25 13:42 Pulse Oximetry 94 02/06/25 13:42 Oxygen Delivery Method Room Air 02/06/25 13:42 Const General: cooperative, healthy appearing, comfortable, well developed and well hydrated Nutritional Appearance: average body habitus [facility] Head: normal to inspection Ears: external ears normal Nose: external nose normal and nares normal Face and sinus: sinuses nontender, face symmetric, ecchymosis not on the right, not on the left and not bilaterally, erythema not on the right, not on the left and not bilaterally and edema not on the right, not on the left and not bilaterally Mouth: lip normal Eyes General: Yes appearance normal, both eyes and all related structures Eyelids: eyelids normal Sclera: sclerae normal Pupils: PERRL Neck Neck: normal visual inspection Resp Effort & Inspection: normal respiratory effort and able to speak in complete sentences Cardio Rate: regular rate Rhythm: regular rhythm Pulses: radial pulses present GI Inspection: normal to inspection and non-distended Back/Spine/Pelvis Back: normal to inspection Skin General: no rashes or lesions noted Neuro General: patient alert, patient awake, patient oriented x3, gait normal, moves all extremities, normal light touch, pain and propioception, no focal motor deficits and CN's II-XI intact bilaterally Cognition: normal cognition Speech: speech normal Gait: normal gait Motor: muscle tone normal throughout Sensory Exam: no sensory deficits noted Extrem General: normal to inspection Psych Appearance: grossly normal Mental Status: mental status grossly normal Speech and Movement: speech and movement normal Mood: congruent mood Attitude: cooperative Thought Process: normal Thought Content: normal Judgment: judgment good Course Orders Ordered: ED Orders 02/06/25 13:54 EKG-12 Lead Routine 02/06/25 14:05 CBC Auto Diff [Complete Blood Count AUTO DIFF] Stat Discontinued Medications Ketorolac Tromethamine (Ketorolac 30 Mg/Ml Vial) 15 mg IV NOW ONE Stop: 02/06/25 16:28 Vital Signs Vital signs: Vital Signs - 8 hr 02/06/25 13:42 Pulse Rate 79 Respiratory Rate 16 Blood Pressure 172/79 H Pulse Oximetry 94 Oxygen Delivery Method Room Air MDM - Chest Pain Lab Data 02/06/25 14:05 ECG Data Attestation: I personally reviewed and interpreted this ECG as follows: Interpretation: EKG normal sinus rhythm at 74 with no concerning ischemic ST changes noted. [facility] Narrative Medical decision making narrative: Pt presents w/breast pain Pain. Chest x-ray considered for pneumonia, pneumothorax, or congestive heart failure, however deferred due to reassuring hx and physical. EKG ordered and unremarkable Troponin in consideration of arrhythmia, Acute Coronary Syndrome, Acute Myocardial Infarction, however deferred due to reassuring hx and physical. Check labs due to consideration of anemia, electrolyte abnormalities including hypokalemia, hyperkalemia, hyponatremia, hypernatremia, hyperglycemia, hypoglycemia, however deferred due to reassuring hx and physical. No CT chest indicated as I considered but do not clinically suspect aortic dissection/pulmonary embolus. Patient feeling better after Toradol. Understands risk of possible new breast cancer understands need to follow up with primary care physician as soon as possible to schedule a mammogram and to return if any concerning symptoms arise as listed below Discharge Plan Departure Patient Disposition: Home Clinical Impression: Breast tenderness Activity Restrictions/Additional Instructions: Please return to ED if you have worsening chest pain, shortness of breath, dizziness, nausea, passing out, or any other concern. Return to the emergency department for any pus drainage, fever, redness at the site, skin changes of the breast, nipple discharge, or any other concern. Please make sure you follow-up with your primary care doctor to schedule a mammogram as soon as possible. Prescriptions: No Action fluconazole 150 mg tablet 150 mg PO Q3D Qty: 2 0RF Rx Instructions: take one tab, then in 3 days take the last tab. Jardiance 10 mg tablet 10 mg PO DAILY oxyquinoline-sod.lauryl sulfat 0.025-0.01 % gel 1 ea vaginal .weekly Qty: 113.4 3RF Rx Instructions: Apply to vagina once weekly. azithromycin [Zithromax Z-Jacob] 250 mg tablet See Rx Instructions .ROUTE .COMPLEX Qty: 6 0RF Rx Instructions: For 250 mg dose pack: take 500 mg today (day 1), then 250 mg for 4 days (days 2-5) benzonatate 200 mg capsule 200 mg PO TID PRN (Reason: cough) Qty: 30 0RF codeine-guaifenesin 10-100 mg/5 mL liquid 5 ml PO Q6H PRN (Reason: cough) Qty: 118 0RF carvedilol 12.5 mg Tablet 12.5 mg PO BID amlodipine 2.5 mg Tablet 2.5 mg PO DAILY Rx Instructions: takes at bedtime melatonin 3 mg Tablet 3 mg PO BEDTIME levothyroxine 25 mcg Tablet 25 mcg PO DAILY estradiol 1 mg Tablet 1 mg PO BEDTIME hydrocodone-acetaminophen 5-325 mg tablet 1 tab PO Q6H PRN (Reason: pain) Qty: 12 0RF metronidazole 500 mg tablet 500 mg PO Q8H Qty: 30 0RF ciprofloxacin HCl [Cipro] 500 mg tablet 500 mg PO BID Qty: 20 0RF ondansetron 4 mg tablet,disintegrating 4 mg PO Q8H PRN (Reason: nausea and vomiting) Qty: 14 0RF Referrals: Princess Avalos PA-C [Primary Care Provider, Family Practice] Stand Alone Forms: Patient Portal/API
[2025-02-06 16:42] LABS: Add Manual Diff / Slide Review NO; Hematocrit 46.2 % (36-46); Hemoglobin 15.5 g/dL (12.0-16.0); Lymphocytes Absolute Auto 1900 /uL (1100-4500); Mean Corpuscular HGB Conc 33.6 % (30-36); Mean Corpuscular Hemoglobin 31.0 PG (26-34); Mean Corpuscular Volume 92.5 fL (80-100); Platelet Count 320 X10^3/uL (150-400)
[2025-02-06] MEDS: KETOROLAC 30 MG/ML VIAL 15 MG IV (16:42)
[2025-02-06 17:18] VITALS: BP 155/71; PULSE 70; RESP 16; O2SAT 96
== END 2025-02-06 17:21 | disposition home or self-care (01) ==
PROVIDERS: Emergency Provider Emergency Medicine; PCP Physician Assistant Medical
DX: N64.4 Mastodynia (principal); N63.23 Unspecified lump in the left breast, lower outer quadrant; Z80.3 Family history of malignant neoplasm of breast
CPT/HCPCS: 85025; 93005; 93010; 96374; 99283; 99284; J1885